=== PATIENT | female | born 1950 | race Caucasian/White ===

== ENCOUNTER 2022-03-06 14:55 | Inpatient (IN) | payer MEDICARE, OTHER, SELFPAY ==
[2022-03-06] VITALS (11 sets, daily range): BP systolic 107–142; BP diastolic 73–98; PULSE 83–107; RESP 16–22; TEMP 36.5–37.1; O2SAT 94–97
--- NOTE | 2022-03-06 14:57 | XR_ITS ---
WS: [id number] Exam: XR hip RT 2-3V wo/w pel* [id number] Date/Time of Exam: 03/06/2022 2:57 PM Reason For Exam: hip pain fall Comminuted intertrochanteric fracture of the right hip with coxa vera deformity. No dislocation. Mild degenerative change of the joint compartment. Normal soft tissues. Metallic screws bridge the right SI joint. XR/XR hip RT 2-3V wo/w pel* [id number] IMPRESSION: 1. Comminuted intertrochanteric fracture with coxa vera deformity.
--- NOTE | 2022-03-06 15:07 | W.ED.GENADLT ---
HPI - General Adult General: Chief complaint: Fall Stated complaint: Fall, R hip pain Time Seen by Provider: 03/06/22 14:57 History of Present Illness: Patient is a 71-year-old female with a history of asthma presenting to the emergency room after an episode of fall 30 minutes ago while patient was eating a [employer]. Patient reports slipped and fell onto her right side and since then has been having significant right-sided hip pain. Patient denies any head injury, or other bodily injuries or trauma. Patient denies any anticoagulation use. Patient denies any associate chest pain, shortness with palpitation prior to the episode of fall. She has been unable to bear weight on the affected extremity after the fall. Onset:30 minutes ago Duration:30 minutes Location:home Severity:moderate/severe Associated symptoms: Deny chest pain, dyspnea, nausea, rash, palpitations or vomiting Review of Systems Const: Denies: fever(s) or chills Eyes: Denies: change in vision ENMT: Denies: mouth pain Card: Denies: chest pain or palpitations Resp: Denies: dyspnea or non-productive cough GI: Denies: abdominal pain, nausea, vomiting or diarrhea : Denies: dysuria Musc: Reports: extremity pain (+R sided hip pain) Skin/Breast: Denies: rash or new lesions Neuro: Denies: weakness in extremities Psych: Reports: other (Normal mood) Chuck/Lymph: Denies: easy bruising PFS ED PFSH: Medical History Asthma Social History Smoking and tobacco status: never smoked Alcohol intake: never Substance/Drug Use: never Physical Exam Const: COMMON NORMALS: alert HENMT: COMMON NORMALS: atraumatic HEAD & SCALP: atraumatic MOUTH: moist mucous membranes not abnormal Eye: COMMON NORMALS: EOMs intact bilaterally and conjunctivae normal CONJUNCTIVA: Yes conjunctivae normal Neck/C-Spine: COMMON NORMALS: full ROM and supple Resp: COMMON NORMALS: normal respiratory effort OTHER: +Expiratory wheezes b/l Cardio: COMMON NORMALS: regular rate RATE: regular rate GI: COMMON NORMALS: Soft to palpation and non-tender PALPATION: Yes Soft to palpation Extremity: OTHER: + Decreased range of motion of right hip due to pain, right lower extremity is externally rotated and shortened, neurovascular exam intact in the affected extremity, cap refill < 3 seconds in the R toes Neuro: SENSORIUM/ORIENTATION: Yes alert MOTOR EXAM: No Abnormal motor strength present and Other motor observations present (no focal motor deficits) Psych: COMMON NORMALS: speech normal SPEECH: Yes normal speech MOOD & AFFECT: Yes euthymic mood Course Vital Signs: Vital signs: Vital Signs Temperature 98.7 F 03/06/22 15:05 Pulse Rate 88 03/06/22 15:09 Respiratory Rate 16 03/06/22 15:09 Blood Pressure 118/73 03/06/22 15:09 Pulse Oximetry 95 03/06/22 15:09 MDM - General Adult Medical Decision Making 71-year-old female with history of asthma presents emergency room with complaints of fall and right-sided hip pain x30 minutes. Patient is right hip is shortened and externally rotated. Neurovascular exam intact in the affected extremity. Patient has significant pain with range of motion of right hip. X-ray showed right-sided intertrochanteric fx. Case was discussed with Dr. Xie who agrees with medical management for now followed by surgery. Patient's pain appears to be well controlled. We will keep n.p.o. for present time. Disposition: admission Lab Data Radiology Impressions Hip/Pelvis X-Ray 03/06/22 14:57 IMPRESSION: 1. Comminuted intertrochanteric fracture with coxa vera deformity. Imaging Data Other Imaging: Radiologist's impression: [address] [address] XRay Report Signed Patient: Elsie Jacobo [place] Unit #: [id number] : 1950 Age/Sex: 71 / F ADM Date: 03/06/22 Loc: ER Room/Bed: Attending Dr: Ordering Provider/Ordering MD: Jesse Vogt MD Date of Service: 03/06/22 Procedure(s): XR hip RT 2-3V wo/w pel* [id number] Accession Number(s): [id number] Report Number: [id number] WS: [id number] Exam: XR hip RT 2-3V wo/w pel* [id number] Date/Time of Exam: 03/06/2022 2:57 PM Reason For Exam: hip pain fall Comminuted intertrochanteric fracture of the right hip with coxa vera deformity. No dislocation. Mild degenerative change of the joint compartment. Normal soft tissues. Metallic screws bridge the right SI joint. XR/XR hip RT 2-3V wo/w pel* [id number] IMPRESSION: 1. Comminuted intertrochanteric fracture with coxa vera deformity. ? Dictated By: Berhane Guy DO Signed By: Berhane Guy DO Signed Date/Time: 03/06/221512 DD/ 11 Discharge Plan Discharge Patient Disposition: Left Against Medical Advice Clinical Impression: Acute hip pain, Closed intertrochanteric fracture Condition: Stable Referrals: Wade Bell MD [Referring] - Patient Instructions: Opioid Safety Coding Level of Care Code ED Chief Engineering Division for Chg Fwd Exam Comprehensive
[2022-03-06] MEDS: morphine 4 mg/mL SDV 1 mL IVP (15:19)
--- NOTE | 2022-03-06 15:21 | XR_ITS ---
WS: [email or web address] Exam: XR chest 1V portable [id number] Date/Time of Exam: 03/06/2022 3:38 PM Reason For Exam: dyspnea No priors. Small infiltrate seen in the lateral mid right lung. Remaining lung giles are clear. No pleural effu sions or pneumothorax. Unremarkable cardiomediastinal silhouette for technique. A permanent cardiac p acer superimposes the left chest. ICD leads along the left heart border. Bony structures are intact.: 1. Small wedge-shaped infiltrate in the lateral mid right lung. This may represent chronic change or focal pneumonia. 2. No other significant finding.
[2022-03-06 15:44] LABS: Basophils % 0.6 %; Eosinophils # 0.9 10^3/uL (0.0-0.8); Eosinophils % 11.9 %; Hematocrit 40.4 % (37.0-47.0); Hemoglobin 12.7 g/dL (11.5-15.3); Lymphocytes # 2.5 10^3/uL (0.8-4.8); Lymphocytes % 34.6 %; Mean Corpuscular HGB Conc 31.4 g/dL (30.0-36.0); Mean Corpuscular Volume 92.2 fl (81-99); Mean Platelet Volume 9.9 fL (7.4-10.4); Monocytes # 0.7 10^3/uL (0.2-0.9); Monocytes % 9.3 %; Neutrophils # 3.09 10^3/uL (1.8-7.7); Nucleated Red Blood Cells % 0 %; Platelet Count 240 10^3/cmm (130-400); Red Blood Count 4.38 10^6/uL (4.1-5.3); Red Cell Distribution Width 12.9 % (12.1-15.1); White Blood Count 7.2 10^3/uL (4.0-10.0)
--- NOTE | 2022-03-06 15:44 | ECG_ITS ---
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 Measurements Intervals [place] Rate: 87 P: 58 [place]: 167 QRS: -48 QRSD: 172 T: 98 QT: 417 QTc: 503 Interpretive Statements A sense V paced rhythm with isolated PVC No previous ECG available for comparison Electronically Signed On 03-06-2022 21:20:07 CDT by Radha Matson M.D. [id number]
--- NOTE | 2022-03-06 15:49 | PC.PHAR ---
pt and pts verified pts medications-pt states she is still taking pantoprazole 40mg daily ext med history shows last filled 10/30/21 12d/s for 40mg bid-pt states she is still taking montelukast 10mg daily ext med history shows last filled 09/26/21 90d/s pt states had a build up of those medications-notes are made in the pharmacy comments
[2022-03-06 15:58] LABS: Partial Thromboplastin Time 26.6 SECONDS (23.9-36.7)
[2022-03-06 16:00] LABS: Anion Gap 12.5 (5-19); Blood Urea Nitrogen 14 mg/dL (8-23); Calcium 9.5 mg/dL (8.5-10.5); Carbon Dioxide 29 mmol/L (22-29); Chloride 100 mmol/L (98-107); Glucose 133 mg/dL (65-115); Osmolality Calculated 286 mOsm/kg (285-295); Potassium 4.5 mmol/L (3.5-5.1); Sodium 137 mmol/L (136-145)
[2022-03-06 16:37] LABS: Troponin(5th) Baseline 13 ng/L (0-10)
[2022-03-06 16:48] LABS: NT Pro B Type Natriuretic Pept 114 pg/mL (0-125); Procalcitonin 0.04 ng/mL (0-0.5)
[2022-03-06] MEDS: ipratropium-albuterol 3 mL Neb INHALATION ×2 (17:23→21:26)
--- NOTE | 2022-03-06 17:44 | ECG_ITS ---
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 Measurements Intervals [place] Rate: 93 P: 63 [place]: 170 QRS: -42 QRSD: 171 T: 114 QT: 393 QTc: 490 Interpretive Statements ELECTRONIC VENTRICULAR PACEMAKER ABNORMAL RHYTHM ECG Compared to ECG 03/06/2022 15:49:34 No significant changes Electronically Signed On 03-06-2022 21:28:33 CDT by Radha Matson M.D. [email or web address] medical [email or web address] medical [email or web address] Investments/store/[id number]
--- NOTE | 2022-03-06 17:48 | PM.HP ---
Providers/Chief Complaint Chief Complaint: Fall, R hip pain History of Present Illness Elsie Jacobo is a 71 year old female with a past medical history of asthma, history of ICD and defibrillator placement for CHF, CHF, type unknown, who presents to [facility] for a fall. Patient tells me that she was out [employer], she was using the bathroom, when she walked out and she fell to the floor. Denies any preceding chest pain, no palpitations, lightheadedness, dizziness, no strokelike symptoms no seizure-like symptoms, she just fell to the floor, denies her knees giving out, denies twisting, denies tripping. She was diagnosed with a hip fracture hospitalist team was consulted as she is having active wheezing. She tells me that she is diagnosed with asthma initially they thought she has COPD but they did some lung test she tells me and she was diagnosed with asthma. She is currently not smoking but has a history of smoking in the past. She tells me that she has been using [id number] nebulizers at home, has not used any steroids she is supposed to see a lung doctor in the next 2 weeks. Does report a 2-week history of increased shortness of breath, does not use oxygen at home, no history of pulmonary emboli, no history of DVT, is not on any blood thinners except aspirin. No sick contacts, no recent travel, no fevers, no history of COVID-19 Review of Systems Const: Denies: fever(s) Eyes: Denies: change in vision or blurry vision ENMT: Denies: nasal congestion GI: Denies: abdominal pain or nausea : Denies: dysuria Skin/Breast: Denies: rash Neuro: Denies: dizziness Endo: Denies: polyuria or polydipsia Medications/Allergies Home Medications Medication Instructions Recorded Confirmed Last Taken Type albuterol sulfate 90 mcg/actuation 1 puff INHALATION Q4H PRN 03/06/22 03/06/22 Unknown History aerosol inhaler aspirin 81 mg tablet,delayed 81 mg PO QAM 03/06/22 03/06/22 Unknown History release etanercept 50 mg/mL (1 mL) 50 mg SUBCUT Q7D 03/06/22 03/06/22 03/04/22 History subcutaneous syringe (Enbrel) ipratropium 0.5 mg-albuterol 3 mg 3 ml INHALATION Q6H PRN 03/06/22 03/06/22 Unknown History (2.5 mg base)/3 mL nebulization soln ketotifen fumarate 0.025 % (0.035 1 drp OPHTHALMIC (EYE) Q8H PRN 03/06/22 03/06/22 Unknown History %) eye drops (Allergy Eye (ketotifen)) levetiracetam 500 mg tablet 500 mg PO BID 03/06/22 03/06/22 03/06/22 History montelukast 10 mg tablet 10 mg PO DAILY 03/06/22 03/06/22 Unknown History multivitamin 1 tab PO DAILY 03/06/22 03/06/22 Unknown History pantoprazole 40 mg tablet,delayed 40 mg PO DAILY 03/06/22 03/06/22 Unknown History release ropinirole 0.25 mg tablet 0.25 - 0.5 mg PO BEDTIME 03/06/22 03/06/22 03/05/22 History spironolactone 25 mg tablet 25 mg PO QAM 03/06/22 03/06/22 03/06/22 History Allergies Allergy/AdvReac Type Severity Reaction Status Date / Time iodine Allergy ALGY-Rash Verified 03/06/22 15:33 Penicillins Allergy Unknown Verified 03/06/22 15:09 PFSH Acute PFSH: Medical History (Updated 03/06/22 @ 18:10 by Arya Lagunas MD) Asthma History of asthma Surgical History (Updated 03/06/22 @ 18:08 by Arya Lagunas MD) History of implantable cardioverter-defibrillator (ICD) placement Family History (Updated 03/06/22 @ 18:09 by Arya Lagunas MD) Father CAD (coronary artery disease) Social History Smoking and tobacco status: never smoked Alcohol intake: never Substance/Drug Use: never Vitals/I&O/Wt Last Vital Signs Temp 98.7 F 03/06/22 15:05 Pulse 83 03/06/22 17:25 Resp 18 03/06/22 17:25 BP 109/86 03/06/22 17:13 Pulse Ox 95 03/06/22 17:25 Weight last 48 hrs Weight 63.503 kg Physical Exam Const: COMMON NORMALS: no acute distress and patient oriented x3 HENMT: COMMON NORMALS: normocephalic HEAD & SCALP: normocephalic Neck/C-Spine: COMMON NORMALS: no JVD Resp: COMMON NORMALS: normal respiratory effort, No retractions and No use of accessory muscles AUSCULTATION: wheezes Cardio: COMMON NORMALS: no JVD, regular rate, regular rhythm, S1 normal heart sound present and S2 normal heart sound present RATE: regular rate RHYTHM: regular rhythm HEART SOUNDS: S1 normal heart sound present and S2 normal heart sound present GI: COMMON NORMALS: Normal to inspection, nondistended, normoactive bowel sounds present, Soft to palpation, non-tender, No hepatosplenomegaly present, no masses and no bruits PALPATION: Yes Soft to palpation and Yes No hepatosplenomegaly present Extremity: COMMON NORMALS: no calf tenderness and no pedal edema Neuro: COMMON NORMALS: patient oriented x3 Psych: COMMON NORMALS: mental status grossly normal Data : 03/06/22 15:29 03/06/22 15:29 A&P Assessment and plan (1) Closed intertrochanteric fracture: Status: Acute (2) Acute hip pain: Status: Acute (3) Asthma exacerbation: Status: Acute Plan Right hip fracture -Pain control Dilaudid -DVT prophylaxis Lovenox -N.p.o. midnight -Possible surgical intervention tomorrow full code acute asthma exacerbation -Solu-Medrol 60 every 6 -DuoNeb every 4 hours -monitor respiratory status closely -Doxycycline History of ICD placement, for CHF History of CHF, not in exacerbation, and L BNP is not elevated History of fall -Patient's tells me that she always falls -He is not exactly sure why -The etiology of this fall is unclear -Troponins, serial EKGs, echo, carotid artery ultrasound, CT of the head - Attestations Medical Necessity Statement*: Patient requires patient requires hospitalization for hip fracture, acute asthma exacerbation, inpatient, greater than 2 minutes Coding Level of Care Code Acute Hvac Engineer for g Fwd Diagnoses Closed intertrochanteric fracture S72.143A Acute hip pain M25.559 Asthma exacerbation J45.901
[2022-03-06 18:36] LABS: Troponin 5 2HR 12.05 ng/L (0-10)
[2022-03-06 18:45] LABS: Troponin 5 2HR Delta -0.95 ABS# (0-10)
--- NOTE | 2022-03-06 18:57 | PM.CONSULT ---
Providers/Reason For Consult Consulting Physician/Specialty*: Lorna Perez MD Reason for Consult*: Right intertrochanteric hip fracture Requesting Physician: Jesse Vogt MD Attending Physician: Arya Lagunas MD History of Present Illness History of Present Illness Elsie Jacobo is a 71 year old female who fell most recently while in [facility]. She does describe a fall a couple of weeks ago at a [employer]'s as well. The most recent fall occurred after using the bathroom. She notes that she walked out of the bathroom and fell to the floor. She denied any kind of syncope or other reason for the fall. She cannot tell me why she fell, however. Upon admission, the patient had significant wheezing and she has been diagnosed with asthma. She has a prior history of tobacco use, but is currently not a user. She uses njosoz-wph-raffy nebulizers at home, but she has not used any steroid treatment. She does have a appointment with a seafood harvester in the next couple of weeks. Review of Systems Const: Denies: fever(s) or chills Eyes: Denies: change in vision or blurry vision ENMT: Denies: mouth pain or nasal congestion Card: Denies: chest pain or palpitations Resp: Denies: dyspnea or non-productive cough GI: Denies: abdominal pain, nausea, vomiting or diarrhea : Denies: dysuria Musc: Reports: extremity pain (+R sided hip pain) Skin/Breast: Denies: rash or new lesions Neuro: Denies: weakness in extremities or dizziness Psych: Reports: other (Normal mood) Endo: Denies: polyuria or polydipsia Chuck/Lymph: Denies: easy bruising Medications/Allergies Home Medications Medication Instructions Recorded Confirmed Last Taken Type albuterol sulfate 90 mcg/actuation 1 puff INHALATION Q4H PRN 03/06/22 03/06/22 Unknown History aerosol inhaler aspirin 81 mg tablet,delayed 81 mg PO QAM 03/06/22 03/06/22 Unknown History release etanercept 50 mg/mL (1 mL) 50 mg SUBCUT Q7D 03/06/22 03/06/22 03/04/22 History subcutaneous syringe (Enbrel) ipratropium 0.5 mg-albuterol 3 mg 3 ml INHALATION Q6H PRN 03/06/22 03/06/22 Unknown History (2.5 mg base)/3 mL nebulization soln ketotifen fumarate 0.025 % (0.035 1 drp OPHTHALMIC (EYE) Q8H PRN 03/06/22 03/06/22 Unknown History %) eye drops (Allergy Eye (ketotifen)) levetiracetam 500 mg tablet 500 mg PO BID 03/06/22 03/06/22 03/06/22 History montelukast 10 mg tablet 10 mg PO DAILY 03/06/22 03/06/22 Unknown History multivitamin 1 tab PO DAILY 03/06/22 03/06/22 Unknown History pantoprazole 40 mg tablet,delayed 40 mg PO DAILY 03/06/22 03/06/22 Unknown History release ropinirole 0.25 mg tablet 0.25 - 0.5 mg PO BEDTIME 03/06/22 03/06/22 03/05/22 History spironolactone 25 mg tablet 25 mg PO QAM 03/06/22 03/06/22 03/06/22 History Allergies Allergy/AdvReac Type Severity Reaction Status Date / Time iodine Allergy ALGY-Rash Verified 03/06/22 15:33 Penicillins Allergy Unknown Verified 03/06/22 15:09 PFSH Acute PFSH: Medical History Asthma History of asthma Surgical History History of implantable cardioverter-defibrillator (ICD) placement Family History Father CAD (coronary artery disease) Social History (Updated 03/07/22 @ 12:51 by Lorna Perez MD) Smoking and tobacco status: former smoker Alcohol intake: never Substance/Drug Use: never Vitals/I&O/Wt Last Vital Signs Temp 98.7 F 03/06/22 15:05 Pulse 99 03/06/22 18:18 Resp 16 03/06/22 18:18 BP 119/74 03/06/22 18:18 Pulse Ox 96 03/06/22 18:18 Weight last 48 hrs Weight 140 lb Physical Exam Const: COMMON NORMALS: no acute distress, average body habitus, patient oriented x3 and alert GENERAL APPEARANCE: cooperative and comfortable ORIENTATION/CONSCIOUSNESS: Yes awake HENMT: COMMON NORMALS: normocephalic and atraumatic HEAD & SCALP: normocephalic and atraumatic Eye: GENERAL EYE: appearance normal, both eyes and all related structures Resp: COMMON NORMALS: normal respiratory effort EFFORT & INSPECTION: Yes able to speak in complete sentences and Yes symmetric chest movement Extremity: RIGHT LOWER EXTREMITY: Yes hip joint Right hip: Yes ROM (Not evaluated.) and Yes neurovascular exam (Intact distally.) Neuro: COMMON NORMALS: patient oriented x3 SENSORIUM/ORIENTATION: Yes alert Psych: COMMON NORMALS: mental status grossly normal APPEARANCE: Yes grossly normal ATTITUDE: Yes calm and Yes engaged ATTENTION/CONCENTRATION: Yes attention grossly intact Skin: COMMON NORMALS: no rashes or lesions noted GENERAL SKIN EXAM: no rashes or lesions noted Data : 03/07/22 01:43 03/07/22 01:43 Xray Ortho: I personally reviewed and interpreted this imaging study as follows: My impression: X-rays were obtained in the emergency department. The imaging studies included 2 views of the patient's right hip. There is an intertrochanteric hip fracture involving the lesser trochanter and with significant shortening and coxa vera deformity. The fracture does not appear to extend beyond the distal aspect of the lesser trochanter. A&P Assessment and plan (1) Closed intertrochanteric fracture: Patient presented to the emergency room with a displaced shortened right intertrochanteric hip fracture. I was consulted by the emergency department for definitive care. Tentatively, the patient is on the schedule for March 07 at approximately 10 AM. I did receive a call from the hospitalist team that the patient is quite wheezy, and and she appears to have an acute asthmatic exacerbation. Secondary to the nature of her fracture, my preference would be to proceed tomorrow with open reduction internal fixation utilizing a trochanteric nail, however, the patient will need to be reevaluated in the morning by the medical team to determine appropriateness of this. The patient has now been found to have influenza, but it is felt that it is appropriate to proceed with the surgical intervention given the morbidities associated with not fixing this fracture in a timely fashion. The patient understands the risks. Additionally, the patient has SI joint screws which are problematic for her. Her has asked if we could take those out. I have advised the patient that we will not be in the area of the screws. Status: Acute Qualifiers: Encounter type: initial encounter Fracture alignment: displaced Laterality: right Qualified Code(s): S72.141A - Displaced intertrochanteric fracture of right femur, initial encounter for closed fracture Consult Attestations Medical Necessity Statement: Patient is hospitalized for treatment following closed intertrochanteric hip fracture. Coding Level of Care Code Acute Transportation Sales Consultant for [facility] Diagnoses Closed intertrochanteric fracture S72.141A Encounter type: initial encounter Fracture alignment: displaced Laterality: right
--- NOTE | 2022-03-06 19:33 | PC.NURSE ---
attempted to call report nurse to call back
[2022-03-06] MEDS: HYDROmorphone 1 mg/mL INJ 1 mL 0.5 MG IVP ×2 (20:11→23:48)
--- NOTE | 2022-03-06 21:44 | ECG_ITS ---
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 Measurements Intervals [place] Rate: 102 P: 56 [place]: 164 QRS: -34 QRSD: 166 T: 124 QT: 380 QTc: 495 Interpretive Statements A sense V paced rhythm ELECTRONIC VENTRICULAR PACEMAKER ABNORMAL RHYTHM ECG Compared to ECG 03/06/2022 17:36:04 No significant changes Electronically Signed On 03-06-2022 21:27:27 CDT by Radha Matson M.D. [id number]
[2022-03-06 22:22] LABS: Troponin 5 6HR 11.86 ng/L (0-10); Troponin 5 6HR Delta -1.14 ng/L (0-12)
[2022-03-06] MEDS: enoxaparin 40 mg/0.4 mL Syringe SUBCUT (23:29)
[2022-03-06] MEDS: levETIRAcetam 500 mg Tablet PO (23:29)
[2022-03-07] VITALS (26 sets, daily range): BP systolic 72–131; BP diastolic 47–87; PULSE 63–118; RESP 10–20; TEMP 36.2–37.2; O2SAT 90–100
--- NOTE | 2022-03-07 | XR_ITS ---
WS: [email or web address] Exam: XR hip RT 2-3V wo/w pel* [id number] Date/Time of Exam: 03/07/2022 12:00 AM Reason For Exam: fall, right hip pain AP and lateral C-arm images are submitted for evaluation. Compared to last exam 03/06/2022. There is internal orthopedic fixation involving an intertrochanteric fracture of the right hip with a n intramedullary germaine and femoral neck screw. Alignment is satisfactory for healing. Postoperative rebecca nges in the adjacent soft tissues. XR/XR hip RT 2-3V wo/w pel* [id number] IMPRESSION: 1. Satisfactory ORIF involving an intertrochanteric fracture of the right hip.
--- NOTE | 2022-03-07 | SCC_ITS ---
Procedure done: Open reduction internal fixation right intertrochanteric hip fracture 61.4 seconds of fluoroscopic guidance, for a cumulative dose of 18.79 mGy, was provided to Dr. Perez by the radiology department. C-arm images of the RIGHT hip were saved for the patient's permanent record. [facility]ERS[facility]
[2022-03-07 01:10] LABS: Adenovirus Not Detected (NOT DETECT); Chlamydia Pneumoniae Not Detected (NOT DETECT); Coronavirus 229E,HKU1,NL63,OC4 Not Detected (NOT DETECT); Human Metapneumovirus Not Detected (NOT DETECT); Human Rhinovirus/Enterovirus Not Detected (NOT DETECT); Influenza A Not Detected (NOT DETECT); Influenza A H1 Not Detected (NOT DETECT); Influenza A H1-2009 Not Detected (NOT DETECT); Influenza A H3 Not Detected (NOT DETECT); Influenza B Not Detected (NOT DETECT); Mycoplasma Pneumoniae Not Detected (NOT DETECT); Parainfluenza Virus Type 1 Not Detected (NOT DETECT); Parainfluenza Virus Type 2 Not Detected (NOT DETECT); Parainfluenza Virus Type 3 Not Detected (NOT DETECT); Parainfluenza Virus Type 4 Not Detected (NOT DETECT); Respiratory Syncytial Virus A Not Detected (NOT DETECT); Respiratory Syncytial Virus B Not Detected (NOT DETECT); SARS-COV-2 Not Detected (NOT DETECT)
[2022-03-07 01:17] LABS: Influenza A by IFA Positive (Negative); Influenza B by IFA Positive (Negative)
[2022-03-07 02:20] LABS: Basophils % 0.2 %; Eosinophils % 0.2 %; Hemoglobin 12.1 g/dL (11.5-15.3); Lymphocytes # 0.9 10^3/uL (0.8-4.8); Lymphocytes % 8.8 %; Mean Corpuscular HGB Conc 32.7 g/dL (30.0-36.0); Mean Corpuscular Hemoglobin 29.1 pg (28.0-34.0); Mean Corpuscular Volume 88.9 fl (81-99); Monocytes # 0.2 10^3/uL (0.2-0.9); Monocytes % 2.1 %; Neutrophils # 8.85 10^3/uL (1.8-7.7); Neutrophils % 88.1 %; Nucleated Red Blood Cells % 0 %; Platelet Count 203 10^3/cmm (130-400); Red Blood Count 4.16 10^6/uL (4.1-5.3); Red Cell Distribution Width 12.6 % (12.1-15.1)
[2022-03-07 02:40] LABS: Lactic Sepsis W/Reflex 0.9 mmol/L (0.5-2.2)
[2022-03-07 02:43] LABS: Estmated Average Glucose 120; Hemoglobin A1C 5.8 % (4.0-6.0)
[2022-03-07 02:50] LABS: Add Urine Microscopic? NO; Charge for UA Resulting for Rev
[2022-03-07 02:53] LABS: NT Pro B Type Natriuretic Pept 447 pg/mL (0-125); Procalcitonin 0.05 ng/mL (0-0.5)
[2022-03-07 02:54] LABS: Alanine Aminotransferase 16 U/L (0-33); Albumin Level 4.2 g/dL (3.5-5.2); Alkaline Phosphatase 79 IU/L (35-105); Aspartate Amino Transferase 19 U/L (0-32); Blood Urea Nitrogen 17 mg/dL (8-23); Calcium 9.5 mg/dL (8.5-10.5); Carbon Dioxide 26 mmol/L (22-29); Chloride 102 mmol/L (98-107); Glucose 159 mg/dL (65-115); Magnesium 2.1 mg/dL (1.7-2.3); Osmolality Calculated 291 mOsm/kg (285-295); Phosphorus 3.2 mg/dL (2.5-4.5); Sodium 138 mmol/L (136-145); Total Bilirubin 0.4 mg/dL (0.15-1.2); Total Protein 7.2 g/dL (6.6-8.7)
[2022-03-07 03:01] LABS: Bilirubin Urine Neg (Negative); Blood Urine Neg (Negative); Glucose Urine UA Norm (Normal); Ketones Urine Negative (Negative); Leukocyte Esterase Urine Negative (Negative); Nitrate Urine Negative (Negative); Protein Urine Neg (Negative); Specific Gravity, Urine 1.015 (1.005-1.030); Urine Appearance Clear (CLEAR); Urine Color Yellow (Yellow); Urobilinogen Urine Norm (Negative); pH Urine 6 (5-7)
[2022-03-07 03:04] LABS: Cholesterol 206 mg/dL (0-200); HDL Cholesterol 42 mg/dL (60-100); LDL Cholesterol Calculated 141 mg/dL (50-129); LDL HDL Ratio 3.36 RATIO (0.00-3.22); Triglycerides 117 mg/dL (0-150)
[2022-03-07] MEDS: spironolactone 25 mg Tablet PO (05:09)
[2022-03-07] MEDS: aspirin 81 mg EC Tablet PO (05:09)
--- NOTE | 2022-03-07 05:50 | PC.NURSE ---
Chlorexidine wipes to patient's full body at this time. Clean gown provided.
[2022-03-07] MEDS: HYDROmorphone 1 mg/mL INJ 1 mL 0.5 MG IVP (07:37)
[2022-03-07] MEDS: ipratropium-albuterol 3 mL Neb INHALATION (08:59)
--- NOTE | 2022-03-07 10:43 | P.PN_ITS ---
Subjective Subjective: She reports she is feeling slightly better in terms of her breathing. Otherwise she is not feeling better, with pain in her right hip. She is also bothered by the fact that she has to stay in bed. Discussed with her findings of persistent mild wheeze currently. Discussed pneumonia with influenza positive, she tells me that symptoms have been building up over the last 3-4 days. Discussed some increase in risk from the pneumonia, respiratory infection, potential difficulties with oxygenation, extubation, however, she is also on room air, and reports today is feeling better in terms of her breathing. We discussed consideration of waiting longer, however, this may also be detrimental with continued blood loss, as well as possibility of overall deterioration in condition, loss of stamina, more difficult recovery. She considers that she would like to proceed with hip repair. Vitals/I&O/Wt Last Vital Signs Temp 97.8 F 03/07/22 07:25 Pulse 90 03/07/22 09:08 Resp 18 03/07/22 09:08 BP 119/80 03/07/22 07:25 Pulse Ox 95 03/07/22 09:08 03/06/22 03/07/22 03/07/22 22:59 06:59 14:59 Intake Total 100 / 100 Output Total 250 / 250 Balance -150 / -150 Weight last 48 hrs Weight 69.536 kg Weight 63.503 kg Physical Exam 2 Const: COMMON NORMALS: alert GENERAL APPEARANCE: cooperative ORIENTATION/CONSCIOUSNESS: Yes awake HENMT: COMMON NORMALS: normocephalic, EAC's normal, Normal external nose present and moist oral mucous membranes HEAD & SCALP: normocephalic NOSE: Normal external nose present EXTERNAL AUDITORY CANAL: EAC's normal Neck/C-Spine: COMMON NORMALS: no meningeal signs Chest: CHEST: Yes Symmetrical chest wall rise Resp: COMMON NORMALS: clear to auscultation bilaterally AUSCULTATION: clear to auscultation bilaterally and wheezes (minimal L lower) Cardio: COMMON NORMALS: regular rate, regular rhythm and No murmurs present (Cardio) RATE: regular rate RHYTHM: regular rhythm GI: COMMON NORMALS: Normal to inspection, nondistended, normoactive bowel sounds present, Soft to palpation and non-tender PALPATION: Yes Soft to palpation Extremity: COMMON NORMALS: no pedal edema OTHER: Pain on any repositioning in R hip Neuro: COMMON NORMALS: moves all extremities SENSORIUM/ORIENTATION: Yes alert MENINGEAL SIGNS: Yes no meningeal signs Psych: COMMON NORMALS: mental status grossly normal Skin: COMMON NORMALS: no wounds RASHES: no rashes Urinary Catheter Management: Varghese: Cath Placed During This Visit: yes Reason for Continuing Indwelling Catheter: Other Urinary Catheter Date of Insertion: 03/07/22 Urinary Catheter Time of Insertion: 02:41 Data : 03/07/22 01:43 03/07/22 01:43 A&P Assessment and plan (1) Acute hip pain: Pending repair. Status: Acute (2) Closed intertrochanteric fracture: Status: Acute Qualifiers: Encounter type: initial encounter Fracture alignment: displaced Laterality: right Qualified Code(s): S72.141A - Displaced intertrochanteric fracture of right femur, initial encounter for closed fracture (3) Asthma exacerbation: Feeling better in terms of breathing. She has mild residual wheezing, but overall better. Influenza a and B. Continue breathing treatments. Continue empiric doxycycline for now. Continue steroid. Incentive spirometer. Status: Acute (4) Influenza: Influenza A and B, viral pneumonia. Tamiflu. Symptoms started 3-4 days ago, however, with asthma and risk of complication. Isolation. Status: Acute Plan History of ICD placement, for CHF History of CHF: Avoid fluid overload History of fall: recurrent falls - Attestations Medical Necessity Statement*: Continue admission for management of right hip fracture, influenza infection, asthma exacerbation. Coding Level of Care Code Acute Lighting Specialist for [facility] Diagnoses Closed intertrochanteric fracture S72.141A Encounter type: initial encounter Fracture alignment: displaced Laterality: right Acute hip pain M25.559 Asthma exacerbation J45.901 Influenza J11.1
[2022-03-07] MEDS: acetaminophen 1,000 MG/100 ML PIGGYBACK 400 MG IV (12:55)
[2022-03-07] MEDS: CELEcoxib 200 mg Capsule 400 MG PO (12:55)
[2022-03-07] MEDS: sodium chloride 0.9% 1,000 ML 30 ML IV (12:56)
[2022-03-07] MEDS: vancomycin 1,000 MG in sodium chloride 0.9% 250 ML 250 MG IV (13:08)
--- NOTE | 2022-03-07 14:00 | ANES.PREANE2 ---
Pre-Anesthetic Assessment Height/Weight: Weight 69.536 kg Temp Pulse Resp BP Pulse Ox 98.4 F 99 18 126/78 96 03/07/22 11:59 03/07/22 11:59 03/07/22 11:59 03/07/22 11:59 03/07/22 11:59 Preop Diagnosis: Right intertrochanteric hip fracture Operation Date: 03/07/22 12:30 Proposed Procedures p Trochanteric Femoral Nail(Right) - Lorna Perez MD Familial anesthetic complications: None Was Beta Ngoc taken within 24 hours: N/A Was Clonidine taken within 24 hours: N/A Last intake: Intake Last Liquid Date 03/06/22 Last Liquid Time 23:30 Last Solid Date 03/06/22 Last Solid Time 23:30 Social No alcohol and No tobacco Exam alert, oriented x 3 and regular rate & rhythm wheezing Airway Submandibular: within normal limits Cervical ROM: within normal limits Mallampati: Class II Dentition: full Pulmonary Asthma influenza GI Gastroesophageal Reflux Disease Anesthetic Plan ASA status: 3 Anesthesia: Regional (specify below) (SAB) Medications/Allergies Home Medications Medication Instructions Recorded Confirmed Last Taken Type albuterol sulfate 90 mcg/actuation 1 puff INHALATION Q4H PRN 03/06/22 03/06/22 Unknown History aerosol inhaler aspirin 81 mg tablet,delayed 81 mg PO QAM 03/06/22 03/06/22 Unknown History release etanercept 50 mg/mL (1 mL) 50 mg SUBCUT Q7D 03/06/22 03/06/22 03/04/22 History subcutaneous syringe (Enbrel) ipratropium 0.5 mg-albuterol 3 mg 3 ml INHALATION Q6H PRN 03/06/22 03/06/22 Unknown History (2.5 mg base)/3 mL nebulization soln ketotifen fumarate 0.025 % (0.035 1 drp OPHTHALMIC (EYE) Q8H PRN 03/06/22 03/06/22 Unknown History %) eye drops (Allergy Eye (ketotifen)) levetiracetam 500 mg tablet 500 mg PO BID 03/06/22 03/06/22 03/06/22 History montelukast 10 mg tablet 10 mg PO DAILY 03/06/22 03/06/22 Unknown History multivitamin 1 tab PO DAILY 03/06/22 03/06/22 Unknown History pantoprazole 40 mg tablet,delayed 40 mg PO DAILY 03/06/22 03/06/22 Unknown History release ropinirole 0.25 mg tablet 0.25 - 0.5 mg PO BEDTIME 03/06/22 03/06/22 03/05/22 History spironolactone 25 mg tablet 25 mg PO QAM 03/06/22 03/06/22 03/06/22 History Allergies Allergy/AdvReac Type Severity Reaction Status Date / Time codeine Allergy ALGY-Rash Verified 03/07/22 13:06 iodine Allergy ALGY-Rash Verified 03/06/22 15:33 Penicillins Allergy Unknown Verified 03/06/22 15:09 Current Medications Generic Name Dose Route Start Last Admin Trade Name Freq PRN Reason Stop Dose Admin Albuterol/Ipratropium 3 ml 03/06/22 20:00 03/07/22 11:47 Ipratropium-Albuterol 3 Ml Neb INHALATION Not Given QID.RESPIRATORY MYRTLE Aspirin 81 mg 03/07/22 06:00 03/07/22 05:09 Aspirin 81 Mg Ec Tablet PO 81 mg QAM MYRTLE Administration Enoxaparin Sodium 40 mg 03/06/22 19:56 03/06/22 23:29 Enoxaparin 40 Mg/0.4 Ml Syringe SUBCUT 40 mg Q24H MYRTLE Administration Hydromorphone HCl 0.5 mg 03/06/22 19:56 03/07/22 07:37 Hydromorphone 1 Mg/Ml Inj 1 Ml IVP 0.5 mg Q4H PRN Administration PAIN Doxycycline Hyclate 100 mg/ 100 mls @ 100 mls/hr 03/06/22 20:15 03/07/22 02:55 Sodium Chloride IV Infused Q12H MYRTLE Infusion Protocol Sodium Chloride 1,000 mls @ 30 mls/hr 03/07/22 12:30 03/07/22 12:56 Sodium Chloride 0.9% IV 03/08/22 12:29 30 mls/hr .Q24H MYRTLE Administration Levetiracetam 500 mg 03/06/22 19:56 03/06/22 23:29 Levetiracetam 500 Mg Tablet PO 500 mg BID MYRTLE Administration Methylprednisolone Sodium Succinate 60 mg 03/06/22 19:56 03/07/22 05:08 Methylprednisolone Sod Succ 125 Mg/2 Ml Inj IVP 60 mg Q6H MYRTLE Administration Spironolactone 25 mg 03/07/22 06:00 03/07/22 05:09 Spironolactone 25 Mg Tablet PO 25 mg QAM MYRTLE Administration PFSH Anesthesia Medical History Asthma History of asthma Surgical History History of implantable cardioverter-defibrillator (ICD) placement Family History Father CAD (coronary artery disease) Social History (Updated 03/07/22 @ 12:51 by Lorna Perez MD) Smoking and tobacco status: former smoker Alcohol intake: never Substance/Drug Use: never Data Anesthesia : 03/07/22 01:43 03/07/22 01:43 Short CBC 03/06/22 03/07/22 Range/Units 15:29 01:43 WBC 7.2 10.0 (4.0-10.0) 10^3/uL Hgb 12.7 12.1 (11.5-15.3) g/dL Hct 40.4 37.0 (37.0-47.0) % MCV 92.2 88.9 (81-99) fl Plt Count 240 203 (130-400) 10^3/cmm Neut % (Auto) 43.0 88.1 % Neut # (Auto) 3.09 8.85 H (1.8-7.7) 10^3/uL BMP 03/06/22 03/07/22 15:29 01:43 Sodium 137 138 Potassium 4.5 5.0 Chloride 100 102 Carbon Dioxide 29 26 BUN 14 17 Creatinine 0.7 0.6 Glucose 133 H 159 H Calcium 9.5 9.5 Cardiac Enzymes 03/06/22 03/06/22 03/06/22 Range/Units 15:29 15:29 17:45 Troponin T Baseline 13 H (0-10) ng/L Troponin T 120 Minute 12.05 H (0-10) ng/L Delta Troponin T -0.95 L (0-10) ABS# Troponin T Hi Sens 6Hr (0-10) ng/L Troponin T Hi Sens 6Hr Delta (0-12) ng/L NT-Pro-B Natriuret Pep 114 (0-125) pg/mL 03/06/22 03/07/22 Range/Units 21:49 01:43 Troponin T Baseline (0-10) ng/L Troponin T 120 Minute (0-10) ng/L Delta Troponin T (0-10) ABS# Troponin T Hi Sens 6Hr 11.86 H (0-10) ng/L Troponin T Hi Sens 6Hr Delta -1.14 L (0-12) ng/L NT-Pro-B Natriuret Pep 447 H (0-125) pg/mL Liver Function 03/07/22 Range/Units 01:43 Total Bilirubin 0.4 (0.15-1.2) mg/dL AST 19 (0-32) U/L ALT 16 (0-33) U/L Alkaline Phosphatase 79 (35-105) IU/L Albumin 4.2 (3.5-5.2) g/dL Urine 03/07/22 Range/Units 02:30 Urine Color Yellow (Yellow) Urine Appearance Clear (CLEAR) Urine pH 6 (5-7) Ur Specific [place] 1.015 (1.005-1.030) Urine Protein Neg (Negative) Urine Glucose (UA) Norm (Normal) Urine Ketones Negative (Negative) Urine Nitrate Negative (Negative) Urine Bilirubin Neg (Negative) Ur Leukocyte Esterase Negative (Negative) COVID Results 03/06/22 23:15 Coronavirus 229E (PCR) Not detected SARS-CoV-2 (PCR) Not detected Coags 03/06/22 03/06/22 15:29 15:29 PT 13.50 INR 1.00 APTT 26.6 C-Reactive Protein 5.0 H Cardiac Studies: No Data to Display
[2022-03-07] MEDS: vancomycin 1,000 MG SDV 1000 MG IRRIGATION (14:01)
--- NOTE | 2022-03-07 14:55 | PM.OP ---
Operative Report Date of procedure: March 07, 2022 Pre-op diagnosis: Right comminuted, angulated intertrochanteric hip fracture Post-op diagnosis: Right comminuted, angulated intertrochanteric hip fracture Procedure done: Open reduction internal fixation right intertrochanteric hip fracture Implants: The [place] gamma 3 trochanteric nail system with a size 11 mm x 180 mm x 125 degree trochanteric nail, a 10.5 mm x 90 mm proximal lag screw, and a 5 mm x 32.5 mm distal locking screw Specimens removed/disposition: None Pathology: none sent Surgeon: Lorna Perez Medical Laboratory Assistant: None Anesthesia: MAC (with Spinal, ASA 2) Estimated blood loss (mL): 75 IV fluids (mL): 500 Urine output (mL): 250 Complications: None Findings: Comminuted, angulated intertrochanteric hip fracture with significant shortening, left Condition: stable Disposition: PACU (Then return to floor for postoperative rehabilitation and pain management) Brief History: Elsie Jacobo is a 71 year old female who fell most recently while in [facility].? She does describe a fall a couple of weeks ago at a [employer] [place] [employer] as well.? The most recent fall occurred after using the bathroom.? She notes that she walked out of the bathroom and fell to the floor.? She denied any kind of syncope or other reason for the fall.? She cannot tell me why she fell, however.? Upon admission, the patient had significant wheezing and she has been diagnosed with asthma.? She has a prior history of tobacco use, but is currently not a user.? She uses [id number] nebulizers at home, but she has not used any steroid treatment.? She does have a appointment with a maple syrup maker in the next couple of weeks. Patient was seen preoperatively. Consents were signed and questions were answered. Procedure: Patient is brought to the operating theater. After undergoing adequate general anesthesia with LMA, ASA 3, the patient was transferred to the fracture table, positioned on the table and fluoroscopic guidance obtained throughout the surgical procedure. Prior to the commencement of the surgical procedure, a surgical pause was performed. At the time of the surgical pause, we confirmed the site and side of surgery as well as preoperative surgical markings and appropriate and timely administration of IV antibiotics, vancomycin 1 g. Availability of equipment was also confirmed. Fluoroscopy was used to confirm the fracture was appropriately reduced in both AP and lateral planes. An incision was then made slightly above the greater trochanter to allow access to the greater trochanter. An awl was used to enter the greater trochanter and a guidewire was subsequently placed. Once the guidewire was confirmed to be in appropriate position in AP and lateral planes, reaming was accomplished over this to allow for the proximal diameter of the nail.? Guidewire was then removed. An attempt was made to place the 11 mm x 180 mm x 125 degree gamma 3 trochanteric nail into appropriate position, but the patient's canal was quite small.? Therefore, reaming was accomplished to a size 12-1/2 to allow the 11 mm nail to pass uneventfully.? The nail was placed into appropriate position with positioning being confirmed in AP and lateral planes on the x-ray. It passed without difficulty following reaming. Guidewire was then passed through the jigging system into the femoral head. We wanted to be center or slightly inferior and posterior to center. Guidewire was placed into appropriate position. Once the guidewire was in appropriate position and this position was confirmed by x-ray, length of the guidewire was then measured and we chose a 10.5 mm x 90 mm lag screw.? We reamed to allow for the lag screw to be placed. ?The 90 mm lag screw was then passed into the femoral head through the trochanteric nail. This was passed uneventfully and again position was confirmed in AP and lateral planes. Compression was obtained under fluoroscopic guidance.? The set screw was then placed in position, tightened completely, and subsequently backed off one-quarter turn. The construct was left in position and attention was directed distally. Cannulas were again used to determine appropriate placement for the distal screw. This was placed in position without difficulty. It was measured off of the drill. The appropriate length screw was then obtained and placed in position without difficulty. Once the screw was in position, we confirmed appropriate placement of the components, and we removed the jigging system. Attention was then directed to closure. The hip was copiously irrigated with normal saline with antibiotics. Following this it was dried and closed. Tensor fascia mary was closed proximally with 0 Vicryl in an interrupted fashion. Subcutaneous tissues were closed with 2-0 Monocryl, and the skin was closed with a continuous 3-0 Monocryl subcuticular stitch. This was then covered with Dermabond, Steri-Strips, and OpSite. The patient was removed from the fracture table and returned to recovery in satisfactory condition. The patient will be discharged to the floor for postoperative rehabilitation and pain management. There were no specimens obtained. Related Problem List Diagnoses (1) Closed intertrochanteric fracture:
--- NOTE | 2022-03-07 15:22 | ANE.PACU2 ---
Inpatient post-anesthesia follow up: Airway intact: Yes Vital signs: Temperature 97.1 F Pulse Rate 84 Respiratory Rate 13 Blood Pressure 98/47 Pulse Oximetry 98 Oxygen Delivery Me thod Simple Mask Oxygen Flow Rate 10 Fraction of Inspir ed Oxygen Hydration adequate: Yes Nausea and vomiting: No Pain level: 1 Mental status: Baseline
--- NOTE | 2022-03-07 19:09 | PC.NURSE ---
pt returned from PACU. No transfer orders received. Called PACU and they are unable to assist. Call placed to Dr Perez cell phone re: transfer orders. awaiting call back.
--- NOTE | 2022-03-07 19:56 | PC.NURSE ---
Dr. Davis notified of medications on hold from surgery still and no post-op orders. Day shift attempt to contact Dr. Perez.
[2022-03-07] MEDS: levETIRAcetam 500 mg Tablet PO (21:02)
[2022-03-07] MEDS: oseltamivir phosphate 75 mg Capsule PO (22:53)
[2022-03-08] VITALS (16 sets, daily range): BP systolic 96–117; BP diastolic 56–71; PULSE 60–101; RESP 14–18; TEMP 36.6–36.9; O2SAT 90–98
[2022-03-08 03:11] LABS: Basophils % 0.1 %; Hematocrit 28.2 % (37.0-47.0); Hemoglobin 9.1 g/dL (11.5-15.3); Lymphocytes % 9.9 %; Mean Corpuscular HGB Conc 32.3 g/dL (30.0-36.0); Mean Corpuscular Hemoglobin 29.4 pg (28.0-34.0); Mean Corpuscular Volume 91.3 fl (81-99); Mean Platelet Volume 10.6 fL (7.4-10.4); Monocytes # 0.6 10^3/uL (0.2-0.9); Monocytes % 5.8 %; Neutrophils # 8.53 10^3/uL (1.8-7.7); Neutrophils % 83.7 %; Nucleated Red Blood Cells % 0 %; Platelet Count 164 10^3/cmm (130-400); Red Blood Count 3.09 10^6/uL (4.1-5.3); Red Cell Distribution Width 12.5 % (12.1-15.1); White Blood Count 10.2 10^3/uL (4.0-10.0)
[2022-03-08 03:28] LABS: Alanine Aminotransferase 15 U/L (0-33); Albumin Level 3.3 g/dL (3.5-5.2); Alkaline Phosphatase 57 IU/L (35-105); Blood Urea Nitrogen 22 mg/dL (8-23); Calcium 8.3 mg/dL (8.5-10.5); Carbon Dioxide 22 mmol/L (22-29); Chloride 102 mmol/L (98-107); Globulin 2.5 g/dL (1.3-4.6); Glucose 153 mg/dL (65-115); Magnesium 1.9 mg/dL (1.7-2.3); Osmolality Calculated 280 mOsm/kg (285-295); Phosphorus 2.3 mg/dL (2.5-4.5); Sodium 132 mmol/L (136-145); Total Bilirubin 0.2 mg/dL (0.15-1.2); Total Protein 5.8 g/dL (6.6-8.7)
[2022-03-08 03:29] LABS: Anion Gap 12.5 (5-19); Aspartate Amino Transferase 21 U/L (0-32); Potassium 4.5 mmol/L (3.5-5.1)
[2022-03-08] MEDS: aspirin 81 mg EC Tablet PO (05:07)
[2022-03-08] MEDS: spironolactone 25 mg Tablet PO (05:07)
[2022-03-08] MEDS: ipratropium-albuterol 3 mL Neb INHALATION ×4 (07:51→20:25)
[2022-03-08] MEDS: oseltamivir phosphate 75 mg Capsule PO ×2 (10:21→20:59)
[2022-03-08] MEDS: pantoprazole DR 40 mg Tablet PO (10:35)
[2022-03-08] MEDS: montelukast sodium 10 mg Tablet PO (10:35)
[2022-03-08] MEDS: levETIRAcetam 500 mg Tablet PO ×2 (10:35→19:01)
--- NOTE | 2022-03-08 11:26 | PM.PN ---
Subjective Subjective: He reports she is doing better today. Breathing easier. Denies headache, nausea vomiting or diarrhea. No chest pain. Waiting to work with therapy. Vitals/I&O/Wt Last Vital Signs Temp 97.9 F 03/08/22 08:00 Pulse 77 03/08/22 08:06 Resp 16 03/08/22 08:06 BP 108/64 03/08/22 08:00 Pulse Ox 98 03/08/22 08:06 03/07/22 03/08/22 03/08/22 22:59 06:59 14:59 Intake Total 800 / 900 Output Total 575 / 575 Balance 225 / 325 Weight last 48 hrs Weight 69.536 kg Weight 63.503 kg Physical Exam Const: COMMON NORMALS: alert GENERAL APPEARANCE: cooperative ORIENTATION/CONSCIOUSNESS: Yes awake HENMT: COMMON NORMALS: normocephalic, EAC's normal, Normal external nose present and moist oral mucous membranes HEAD & SCALP: normocephalic NOSE: Normal external nose present EXTERNAL AUDITORY CANAL: EAC's normal Neck/C-Spine: COMMON NORMALS: no meningeal signs Chest: CHEST: Yes Symmetrical chest wall rise Resp: COMMON NORMALS: clear to auscultation bilaterally AUSCULTATION: clear to auscultation bilaterally and wheezes (minimal L lower) Cardio: COMMON NORMALS: regular rate, regular rhythm and No murmurs present (Cardio) RATE: regular rate RHYTHM: regular rhythm GI: COMMON NORMALS: Normal to inspection, nondistended, normoactive bowel sounds present, Soft to palpation and non-tender PALPATION: Yes Soft to palpation Extremity: COMMON NORMALS: no pedal edema OTHER: Pain on any repositioning in R hip Neuro: COMMON NORMALS: moves all extremities SENSORIUM/ORIENTATION: Yes alert MENINGEAL SIGNS: Yes no meningeal signs Psych: COMMON NORMALS: mental status grossly normal Skin: COMMON NORMALS: no wounds RASHES: no rashes Urinary Catheter Management: Varghese: Cath Placed During This Visit: yes Reason for Continuing Indwelling Catheter: Other Urinary Catheter Date of Insertion: 03/07/22 Urinary Catheter Time of Insertion: 02:41 Data : 03/08/22 02:51 03/08/22 02:51 A&P Assessment and plan (1) Closed intertrochanteric fracture: S/p ORIF PT assessment. Pain control. Lovenox. Will DC Varghese. Hemoglobin with some decreased down to 9.1. Reassess. Status: Acute Qualifiers: Encounter type: initial encounter Fracture alignment: displaced Laterality: right Qualified Code(s): S72.141A - Displaced intertrochanteric fracture of right femur, initial encounter for closed fracture (2) Asthma exacerbation: Improving. Wheezing resolved. Feeling better in terms of breathing. Influenza a and B. Continue breathing treatments. Continue empiric doxycycline for now. Cut down steroid. Incentive spirometer. Status: Acute (3) Influenza: Influenza A and B, viral pneumonia. Tamiflu. Isolation. Status: Acute (4) Acute hip pain: Status: Acute Plan History of ICD placement, for CHF History of CHF: Avoid fluid overload History of fall: recurrent falls - Attestations Medical Necessity Statement*: Continue admission following hip fracture and repair, reassess hemoglobin, disposition planning. Coding Level of Care Code Acute Construction Safety Manager for [facility] Fwd Exam Comprehensive Diagnoses Acute hip pain M25.559 Closed intertrochanteric fracture S72.141A Encounter type: initial encounter Fracture alignment: displaced Laterality: right Asthma exacerbation J45.901 Influenza J11.1
[2022-03-08] MEDS: TRAMadol 50 mg Tablet PO ×2 (11:53→21:00)
--- NOTE | 2022-03-08 18:28 | PM.PN ---
Subjective Subjective: Patient worked with therapy today. She did well. Her breathing issues have improved. She is awaiting discharge planning. Medications: Reviewed: Yes Vitals/I&O/Wt Last Vital Signs Temp 98.1 F 03/08/22 16:00 Pulse 95 03/08/22 16:18 Resp 16 03/08/22 16:18 BP 106/56 03/08/22 16:00 Pulse Ox 97 03/08/22 16:18 03/08/22 03/08/22 03/08/22 06:59 14:59 22:59 Intake Total 0 / 0 Output Total 575 / 575 Balance -575 / -575 Weight last 48 hrs Weight 153 lb 4.8 oz Physical Exam Const: COMMON NORMALS: no acute distress, average body habitus, patient oriented x3 and alert GENERAL APPEARANCE: cooperative and comfortable ORIENTATION/CONSCIOUSNESS: Yes awake HENMT: COMMON NORMALS: normocephalic and atraumatic HEAD & SCALP: normocephalic and atraumatic Eye: GENERAL EYE: appearance normal, both eyes and all related structures Resp: COMMON NORMALS: normal respiratory effort EFFORT & INSPECTION: Yes able to speak in complete sentences and Yes symmetric chest movement Extremity: RIGHT LOWER EXTREMITY: Yes hip joint (No significant ecchymosis. Wound is clean and dry per nursing.) Right hip: Yes inspection (No significant swelling.), Yes ROM (Not evaluated.) and Yes neurovascular exam (Intact.) Neuro: COMMON NORMALS: patient oriented x3 SENSORIUM/ORIENTATION: Yes alert Psych: COMMON NORMALS: mental status grossly normal APPEARANCE: Yes grossly normal ATTITUDE: Yes calm and Yes engaged ATTENTION/CONCENTRATION: Yes attention grossly intact Skin: COMMON NORMALS: no rashes or lesions noted GENERAL SKIN EXAM: no rashes or lesions noted Urinary Catheter Management: Varghese: Cath Placed During This Visit: yes, but has since been removed by the nurse Reason for Continuing Indwelling Catheter: Decision to DC Catheter Urinary Catheter Date of Insertion: 03/07/22 Urinary Catheter Time of Insertion: 02:41 Date Urinary Catheter Removed: 03/08/22 Time Urinary Catheter Discontinued: 17:11 Data : 03/08/22 02:51 03/08/22 02:51 A&P Assessment and plan (1) Closed intertrochanteric fracture: Patient presented to the emergency room with a displaced shortened right intertrochanteric hip fracture. I was consulted by the emergency department for definitive care. The patient underwent open reduction internal fixation of her right intertrochanteric hip fracture. Today is postop day 1, and she is doing well. Her hospital course is complicated by the fact that she has positive testing for influenza A&B. She presented with significant asthma exacerbation, but this seems to have improved. Orthopedically, she will continue to work with physical therapy and plan for appropriate discharge when she is up and around and deemed to be safe. Status: Acute Qualifiers: Encounter type: initial encounter Fracture alignment: displaced Laterality: right Qualified Code(s): S72.141A - Displaced intertrochanteric fracture of right femur, initial encounter for closed fracture Attestations Medical Necessity Statement*: Ongoing care for therapy and medical management following right intertrochanteric hip fracture. Coding Level of Care Code Acute C[facility]ar S[facility] Diagnoses Closed intertrochanteric fracture S72.141A Encounter type: initial encounter Fracture alignment: displaced Laterality: right
[2022-03-08] MEDS: enoxaparin 40 mg/0.4 mL Syringe SUBCUT (20:59)
[2022-03-09] VITALS (12 sets, daily range): BP systolic 111–144; BP diastolic 55–67; PULSE 75–100; RESP 14–18; TEMP 36.4–37; O2SAT 94–98
[2022-03-09 04:12] LABS: Hematocrit 27.5 % (37.0-47.0); Hemoglobin 8.9 g/dL (11.5-15.3); Lymphocytes # 0.8 10^3/uL (0.8-4.8); Lymphocytes % 11.4 %; Mean Corpuscular HGB Conc 32.4 g/dL (30.0-36.0); Mean Corpuscular Hemoglobin 29.3 pg (28.0-34.0); Mean Corpuscular Volume 90.5 fl (81-99); Mean Platelet Volume 10.7 fL (7.4-10.4); Monocytes # 0.4 10^3/uL (0.2-0.9); Monocytes % 5.2 %; Neutrophils # 5.75 10^3/uL (1.8-7.7); Neutrophils % 82.7 %; Nucleated Red Blood Cells % 0 %; Platelet Count 150 10^3/cmm (130-400); Red Blood Count 3.04 10^6/uL (4.1-5.3); Red Cell Distribution Width 12.8 % (12.1-15.1)
[2022-03-09 05:18] LABS: Alanine Aminotransferase 14 U/L (0-33); Albumin Level 3.5 g/dL (3.5-5.2); Alkaline Phosphatase 63 IU/L (35-105); Anion Gap 12.9 (5-19); Aspartate Amino Transferase 16 U/L (0-32); Blood Urea Nitrogen 21 mg/dL (8-23); Calcium 8.7 mg/dL (8.5-10.5); Carbon Dioxide 25 mmol/L (22-29); Chloride 104 mmol/L (98-107); Globulin 2.5 g/dL (1.3-4.6); Glucose 150 mg/dL (65-115); Magnesium 2.3 mg/dL (1.7-2.3); Osmolality Calculated 292 mOsm/kg (285-295); Phosphorus 1.7 mg/dL (2.5-4.5); Potassium 3.9 mmol/L (3.5-5.1); Sodium 138 mmol/L (136-145); Total Bilirubin 0.2 mg/dL (0.15-1.2)
[2022-03-09] MEDS: aspirin 81 mg EC Tablet PO (05:42)
[2022-03-09] MEDS: spironolactone 25 mg Tablet PO (05:42)
[2022-03-09] MEDS: ipratropium-albuterol 3 mL Neb INHALATION ×4 (07:44→20:53)
[2022-03-09] MEDS: oseltamivir phosphate 75 mg Capsule PO ×2 (08:55→21:03)
[2022-03-09] MEDS: TRAMadol 50 mg Tablet PO (08:55)
[2022-03-09] MEDS: levETIRAcetam 500 mg Tablet PO ×2 (08:55→17:46)
[2022-03-09] MEDS: montelukast sodium 10 mg Tablet PO (08:55)
[2022-03-09] MEDS: pantoprazole DR 40 mg Tablet PO (08:56)
--- NOTE | 2022-03-09 11:46 | PC.SOCIAL ---
IMM Update pg 2 of IMM updated and reviewed w/ patient. Copy provided and Copy placed in chart.
--- NOTE | 2022-03-09 14:53 | PM.PN ---
Subjective Subjective: She is able to work with therapy today. She otherwise reports she is not having trouble breathing. No chest pain. Otherwise feeling okay. Some difficulties and mobilization due to weightbearing some steps at home. unable to help her due to bilateral rotator cuff injuries. Vitals/I&O/Wt Last Vital Signs Temp 97.6 F 03/09/22 11:37 Pulse 98 03/09/22 11:37 Resp 16 03/09/22 11:37 BP 136/66 03/09/22 11:37 Pulse Ox 94 03/09/22 11:37 03/08/22 03/09/22 03/09/22 22:59 06:59 14:59 Intake Total 260 / 360 320 / 320 Balance 260 / -215 320 / 320 Physical Exam Const: COMMON NORMALS: alert GENERAL APPEARANCE: cooperative ORIENTATION/CONSCIOUSNESS: Yes awake HENMT: COMMON NORMALS: normocephalic, EAC's normal, Normal external nose present and moist oral mucous membranes HEAD & SCALP: normocephalic NOSE: Normal external nose present EXTERNAL AUDITORY CANAL: EAC's normal Neck/C-Spine: COMMON NORMALS: no meningeal signs Chest: CHEST: Yes Symmetrical chest wall rise Resp: COMMON NORMALS: clear to auscultation bilaterally AUSCULTATION: clear to auscultation bilaterally and wheezes (minimal L lower) Cardio: COMMON NORMALS: regular rate, regular rhythm and No murmurs present (Cardio) RATE: regular rate RHYTHM: regular rhythm GI: COMMON NORMALS: Normal to inspection, nondistended, normoactive bowel sounds present, Soft to palpation and non-tender PALPATION: Yes Soft to palpation Extremity: COMMON NORMALS: no pedal edema OTHER: Pain on any repositioning in R hip Neuro: COMMON NORMALS: moves all extremities SENSORIUM/ORIENTATION: Yes alert MENINGEAL SIGNS: Yes no meningeal signs Psych: COMMON NORMALS: mental status grossly normal Skin: COMMON NORMALS: no wounds RASHES: no rashes Urinary Catheter Management: Varghese: Cath Placed During This Visit: yes, but has since been removed by the nurse Reason for Continuing Indwelling Catheter: Decision to DC Catheter Urinary Catheter Date of Insertion: 03/07/22 Urinary Catheter Time of Insertion: 02:41 Date Urinary Catheter Removed: 03/08/22 Time Urinary Catheter Discontinued: 17:11 Data : 03/09/22 03:16 03/09/22 03:16 A&P Assessment and plan (1) Closed intertrochanteric fracture: S/p ORIF Reassessment globin, only slight further decrease down to 8.9. Continue mobilization with therapy. Has some steps at home causing difficulty due to only touchdown weightbearing on affected extremity. Pain control. Lovenox. Briana Varghese. Case management working on post discharge planning, arrangements for rehabilitation. Status: Acute Qualifiers: Encounter type: initial encounter Fracture alignment: displaced Laterality: right Qualified Code(s): S72.141A - Displaced intertrochanteric fracture of right femur, initial encounter for closed fracture (2) Asthma exacerbation: Resolving. Wheezing resolved. Doing well on room air. Subjectively feeling better. Continue to wean off steroid, de-escalated to 20 mg prednisone daily for now. Hopefully can stop after 1-2 days. Influenza a and B. Continue breathing treatments. Continue empiric doxycycline for now. Incentive spirometer. Status: Acute (3) Influenza: Influenza A and B, viral pneumonia. Complete Tamiflu. Isolation. Status: Acute (4) Acute hip pain: Status: Acute Plan History of ICD placement, for CHF History of CHF: Avoid fluid overload History of fall: recurrent falls Attestations Medical Necessity Statement*: Continue admission for assessment management failing right hip fracture and repair. Disposition planning and arrangement. Coding Level of Care Code Acute Assistant Professor Of Biochemistry for Carissa Cortés Diagnoses Closed intertrochanteric fracture S72.141A Encounter type: initial encounter Fracture alignment: displaced Laterality: right Asthma exacerbation J45.901 Influenza J11.1 Acute hip pain M25.559
--- NOTE | 2022-03-09 15:26 | P.PN_ITS ---
Subjective Subjective: She is able to work with therapy today. She otherwise reports she is not having trouble breathing. Some difficulties and mobilization due to weightbearing some steps at home. unable to help her due to bilateral rotator cuff injuries. Medications: Reviewed: Yes Vitals/I&O/Wt Last Vital Signs Temp 97.6 F 03/09/22 11:37 Pulse 98 03/09/22 11:37 Resp 16 03/09/22 11:37 BP 136/66 03/09/22 11:37 Pulse Ox 94 03/09/22 11:37 03/09/22 03/09/22 03/09/22 06:59 14:59 22:59 Intake Total 260 / 360 320 / 320 Balance 260 / -215 320 / 320 Physical Exam Const: COMMON NORMALS: no acute distress, average body habitus, patient oriented x3 and alert GENERAL APPEARANCE: cooperative and comfortable ORIENTATION/CONSCIOUSNESS: Yes awake HENMT: COMMON NORMALS: normocephalic and atraumatic HEAD & SCALP: normocephalic and atraumatic Eye: GENERAL EYE: appearance normal, both eyes and all related structures Resp: COMMON NORMALS: normal respiratory effort EFFORT & INSPECTION: Yes able to speak in complete sentences and Yes symmetric chest movement Extremity: RIGHT LOWER EXTREMITY: Yes hip joint (Dressings dry and intact) Right hip: Yes palpation (No tenderness), Yes ROM (Not evaluated) and Yes neurovascular exam (No evidence of DVT) Neuro: COMMON NORMALS: patient oriented x3 SENSORIUM/ORIENTATION: Yes alert Psych: COMMON NORMALS: mental status grossly normal APPEARANCE: Yes grossly normal ATTITUDE: Yes calm and Yes engaged ATTENTION/CONCENTRATION: Yes attention grossly intact Skin: COMMON NORMALS: no rashes or lesions noted GENERAL SKIN EXAM: no rashes or lesions noted Urinary Catheter Management: Varghese: Cath Placed During This Visit: yes, but has since been removed by the nurse Reason for Continuing Indwelling Catheter: Decision to DC Catheter Urinary Catheter Date of Insertion: 03/07/22 Urinary Catheter Time of Insertion: 02:41 Date Urinary Catheter Removed: 03/08/22 Time Urinary Catheter Discontinued: 17:11 Data : 03/09/22 03:16 03/09/22 03:16 A&P Assessment and plan (1) Closed intertrochanteric fracture: Patient presented to the emergency room with a displaced shortened right intertrochanteric hip fracture. I was consulted by the emergency department for definitive care. The patient underwent open reduction internal fixation of her right intertrochanteric hip fracture. Today is postop day 2, and she is doing well. Her hospital course is complicated by the fact that she has positive testing for influenza A&B. She presented with significant asthma exacerbation, but this seems to have improved. Orthopedically, she will continue to work with physical therapy and plan for appropriate discharge when she is up and around and deemed to be safe. Status: Acute Qualifiers: Encounter type: initial encounter Fracture alignment: displaced Laterality: right Qualified Code(s): S72.141A - Displaced intertrochanteric fracture of right femur, initial encounter for closed fracture Attestations Medical Necessity Statement*: Ongoing care following right hip fracture. Coding Level of Care Code Acute Pigment Grinder for Carissa Cortés Diagnoses Closed intertrochanteric fracture S72.141A Encounter type: initial encounter Fracture alignment: displaced Laterality: right
[2022-03-09] MEDS: enoxaparin 40 mg/0.4 mL Syringe SUBCUT (21:02)
[2022-03-10] VITALS (14 sets, daily range): BP systolic 111–172; BP diastolic 60–82; PULSE 74–93; RESP 16–19; TEMP 36.4–36.8; O2SAT 95–99
[2022-03-10 03:23] LABS: Basophils % 0.1 %; Hematocrit 27.7 % (37.0-47.0); Lymphocytes # 2.1 10^3/uL (0.8-4.8); Lymphocytes % 23.8 %; Mean Corpuscular HGB Conc 32.5 g/dL (30.0-36.0); Mean Corpuscular Hemoglobin 28.9 pg (28.0-34.0); Mean Corpuscular Volume 89.1 fl (81-99); Mean Platelet Volume 10.4 fL (7.4-10.4); Monocytes # 0.7 10^3/uL (0.2-0.9); Monocytes % 7.5 %; Neutrophils # 5.76 10^3/uL (1.8-7.7); Nucleated Red Blood Cells % 0 %; Platelet Count 200 10^3/cmm (130-400); Red Blood Count 3.11 10^6/uL (4.1-5.3); Red Cell Distribution Width 12.9 % (12.1-15.1); White Blood Count 8.6 10^3/uL (4.0-10.0)
[2022-03-10 03:48] LABS: Phosphorus 2.2 mg/dL (2.5-4.5)
[2022-03-10] MEDS: aspirin 81 mg EC Tablet PO (06:15)
[2022-03-10] MEDS: spironolactone 25 mg Tablet PO (06:15)
[2022-03-10] MEDS: ipratropium-albuterol 3 mL Neb INHALATION ×4 (08:05→19:39)
[2022-03-10] MEDS: oseltamivir phosphate 75 mg Capsule PO ×2 (09:26→19:52)
[2022-03-10] MEDS: pantoprazole DR 40 mg Tablet PO (09:27)
[2022-03-10] MEDS: predniSONE 20 mg Tablet PO (09:27)
[2022-03-10] MEDS: montelukast sodium 10 mg Tablet PO (09:27)
[2022-03-10] MEDS: levETIRAcetam 500 mg Tablet PO ×2 (09:27→18:11)
--- NOTE | 2022-03-10 14:29 | PM.PN ---
Subjective Subjective: Reports she is breathing comfortably. Denies chest pain or pressure. No nausea vomiting or diarrhea. Vitals/I&O/Wt Last Vital Signs Temp 97.8 F 03/10/22 12:00 Pulse 76 03/10/22 12:00 Resp 16 03/10/22 12:00 BP 172/82 03/10/22 12:00 Pulse Ox 97 03/10/22 11:48 03/09/22 03/10/22 03/10/22 22:59 06:59 14:59 Intake Total 740 / 1060 0 / 1060 240 / 240 Output Total 200 / 200 100 / 100 Balance 740 / 1060 -200 / 860 140 / 140 Physical Exam Const: COMMON NORMALS: alert GENERAL APPEARANCE: cooperative ORIENTATION/CONSCIOUSNESS: Yes awake HENMT: COMMON NORMALS: normocephalic, EAC's normal, Normal external nose present and moist oral mucous membranes HEAD & SCALP: normocephalic NOSE: Normal external nose present EXTERNAL AUDITORY CANAL: EAC's normal Neck/C-Spine: COMMON NORMALS: no meningeal signs Chest: CHEST: Yes Symmetrical chest wall rise Resp: COMMON NORMALS: clear to auscultation bilaterally AUSCULTATION: clear to auscultation bilaterally and wheezes (minimal L lower) Cardio: COMMON NORMALS: regular rate, regular rhythm and No murmurs present (Cardio) RATE: regular rate RHYTHM: regular rhythm GI: COMMON NORMALS: Normal to inspection, nondistended, normoactive bowel sounds present, Soft to palpation and non-tender PALPATION: Yes Soft to palpation Extremity: COMMON NORMALS: no pedal edema Neuro: COMMON NORMALS: moves all extremities SENSORIUM/ORIENTATION: Yes alert MENINGEAL SIGNS: Yes no meningeal signs Psych: COMMON NORMALS: mental status grossly normal Skin: COMMON NORMALS: no wounds RASHES: no rashes Urinary Catheter Management: Varghese: Cath Placed During This Visit: yes, but has since been removed by the nurse Reason for Continuing Indwelling Catheter: Decision to DC Catheter Urinary Catheter Date of Insertion: 03/07/22 Urinary Catheter Time of Insertion: 02:41 Date Urinary Catheter Removed: 03/08/22 Time Urinary Catheter Discontinued: 17:11 Data : 03/10/22 03:00 03/09/22 03:16 A&P Assessment and plan (1) Closed intertrochanteric fracture: S/p ORIF Some acute anemia after fracture and surgery, hemoglobin down to 9. Continue mobilization with therapy. Post discharge planning and arrangements rehabilitation. Pain control. Lovenox. Briana Varghese. Status: Acute Qualifiers: Encounter type: initial encounter Fracture alignment: displaced Laterality: right Qualified Code(s): S72.141A - Displaced intertrochanteric fracture of right femur, initial encounter for closed fracture (2) Asthma exacerbation: Resolving. Wheezing resolved. Doing well on room air. Subjectively feeling better. Decrease prednisone to 10 mg Influenza a and B. Continue breathing treatments. Continue empiric doxycycline for now. Incentive spirometer. Status: Acute (3) Influenza: Influenza A and B, viral pneumonia. Complete Tamiflu. Isolation. Status: Acute (4) Acute hip pain: Status: Acute Plan History of ICD placement, for CHF History of CHF: Avoid fluid overload History of fall: recurrent falls Attestations Medical Necessity Statement*: Continue postoperative care after right hip fracture and repair, with mobility limitation, continue arrangements for rehabilitation. Coding Level of Care Code Acute Loom Fixer Apprentice for Carissa Cortés Diagnoses Closed intertrochanteric fracture S72.141A Encounter type: initial encounter Fracture alignment: displaced Laterality: right Asthma exacerbation J45.901 Influenza J11.1 Acute hip pain M25.559
[2022-03-10] MEDS: polyethylene glycol 3350 Pkt 17 gm PO (14:35)
[2022-03-10] MEDS: enoxaparin 40 mg/0.4 mL Syringe SUBCUT (19:52)
[2022-03-11] VITALS (14 sets, daily range): BP systolic 114–154; BP diastolic 64–84; PULSE 75–108; RESP 14–18; TEMP 36.6–37.6; O2SAT 93–97
[2022-03-11 05:16] LABS: Basophils % 0.1 %; Eosinophils # 0.1 10^3/uL (0.0-0.8); Eosinophils % 1.6 %; Hematocrit 26.3 % (37.0-47.0); Hemoglobin 8.8 g/dL (11.5-15.3); Lymphocytes # 2.5 10^3/uL (0.8-4.8); Lymphocytes % 31.8 %; Mean Corpuscular HGB Conc 33.5 g/dL (30.0-36.0); Mean Corpuscular Hemoglobin 29.6 pg (28.0-34.0); Mean Corpuscular Volume 88.6 fl (81-99); Mean Platelet Volume 10.1 fL (7.4-10.4); Monocytes # 0.6 10^3/uL (0.2-0.9); Monocytes % 7.3 %; Neutrophils # 4.52 10^3/uL (1.8-7.7); Neutrophils % 56.9 %; Nucleated Red Blood Cells % 0.5 %; Platelet Count 209 10^3/cmm (130-400); Red Blood Count 2.97 10^6/uL (4.1-5.3); Red Cell Distribution Width 12.9 % (12.1-15.1)
[2022-03-11 05:35] LABS: Phosphorus 2.3 mg/dL (2.5-4.5)
[2022-03-11] MEDS: spironolactone 25 mg Tablet PO (06:20)
[2022-03-11] MEDS: aspirin 81 mg EC Tablet PO (06:21)
[2022-03-11] MEDS: ipratropium-albuterol 3 mL Neb INHALATION ×4 (08:45→20:05)
[2022-03-11] MEDS: doxycycline 100 mg Tablet PO ×2 (10:31→17:57)
[2022-03-11] MEDS: polyethylene glycol 3350 Pkt 17 gm PO (10:31)
[2022-03-11] MEDS: oseltamivir phosphate 75 mg Capsule PO ×2 (10:31→21:05)
[2022-03-11] MEDS: predniSONE 10 mg Tablet PO (10:32)
[2022-03-11] MEDS: pantoprazole DR 40 mg Tablet PO (10:32)
[2022-03-11] MEDS: levETIRAcetam 500 mg Tablet PO ×2 (10:32→17:57)
[2022-03-11] MEDS: montelukast sodium 10 mg Tablet PO (10:32)
--- NOTE | 2022-03-11 11:14 | PC.SOCIAL ---
IMM Update pg 2 of IMM updated and reviewed w/ patient. Copy provided and Copy in chart updated.
[2022-03-11] MEDS: TRAMadol 50 mg Tablet PO (12:43)
--- NOTE | 2022-03-11 12:59 | P.PN_ITS ---
Subjective Subjective: She is overall doing better. Feels her breathing has been much better. No wheezing. Not short of breath. No nausea vomiting. Denies other complaints. Vitals/I&O/Wt Last Vital Signs Temp 99.7 F H 03/11/22 11:47 Pulse 108 H 03/11/22 11:47 Resp 18 03/11/22 11:47 BP 123/76 03/11/22 11:47 Pulse Ox 95 03/11/22 11:47 03/10/22 03/11/22 03/11/22 22:59 06:59 14:59 Intake Total 350 / 590 75 / 665 120 / 120 Output Total 125 / 225 Balance 225 / 365 75 / 440 120 / 120 Physical Exam Const: COMMON NORMALS: alert GENERAL APPEARANCE: cooperative ORIENTATION/CONSCIOUSNESS: Yes awake HENMT: COMMON NORMALS: normocephalic, EAC's normal, Normal external nose present and moist oral mucous membranes HEAD & SCALP: normocephalic NOSE: Normal external nose present EXTERNAL AUDITORY CANAL: EAC's normal Neck/C-Spine: COMMON NORMALS: no meningeal signs Chest: CHEST: Yes Symmetrical chest wall rise Resp: COMMON NORMALS: clear to auscultation bilaterally AUSCULTATION: clear to auscultation bilaterally and no wheezes Cardio: COMMON NORMALS: regular rate, regular rhythm and No murmurs present (Cardio) RATE: regular rate RHYTHM: regular rhythm GI: COMMON NORMALS: Normal to inspection, nondistended, normoactive bowel sounds present, Soft to palpation and non-tender PALPATION: Yes Soft to palpation Extremity: COMMON NORMALS: no pedal edema Neuro: COMMON NORMALS: moves all extremities SENSORIUM/ORIENTATION: Yes alert MENINGEAL SIGNS: Yes no meningeal signs Psych: COMMON NORMALS: mental status grossly normal Skin: COMMON NORMALS: no wounds RASHES: no rashes Urinary Catheter Management: Varghese: Cath Placed During This Visit: yes, but has since been removed by the nurse Reason for Continuing Indwelling Catheter: Decision to DC Catheter Urinary Catheter Date of Insertion: 03/07/22 Urinary Catheter Time of Insertion: 02:41 Date Urinary Catheter Removed: 03/08/22 Time Urinary Catheter Discontinued: 17:11 Data : 03/11/22 04:44 03/09/22 03:16 A&P Assessment and plan (1) Closed intertrochanteric fracture: S/p ORIF Some acute anemia after fracture and surgery, hemoglobin down to 9. Continue mobilization with therapy. Post discharge planning and arrangements for rehabilitation. Pain control. Lisa. Briana Varghese. Status: Acute Qualifiers: Encounter type: initial encounter Fracture alignment: displaced Laterality: right Qualified Code(s): S72.141A - Displaced intertrochanteric fracture of right femur, initial encounter for closed fracture (2) Asthma exacerbation: Resolved. Discussed with her we will attempt to stop prednisone. Wheezing resolved. Doing well on room air. Subjectively feeling better. Influenza a and B. Continue breathing treatments. Continue empiric doxycycline for now. Incentive spirometer. Status: Acute (3) Influenza: Influenza A and B, viral pneumonia. Complete Tamiflu. Isolation. Status: Acute (4) Acute hip pain: Status: Acute Plan History of ICD placement, for CHF History of CHF: Avoid fluid overload History of fall: recurrent falls Attestations Medical Necessity Statement*: Continue postoperative care after right hip fracture and repair, with mobility limitation, continue arrangements for rehabilitation. Coding Level of Care Code Acute Small Business Sales Representative [facility] Diagnoses Closed intertrochanteric fracture S72.141A Encounter type: initial encounter Fracture alignment: displaced Laterality: right Asthma exacerbation J45.901 Influenza J11.1 Acute hip pain M25.559
[2022-03-11] MEDS: enoxaparin 40 mg/0.4 mL Syringe SUBCUT (21:00)
[2022-03-12] VITALS (13 sets, daily range): BP systolic 104–122; BP diastolic 66–72; PULSE 75–114; RESP 15–18; TEMP 36.6–37.1; O2SAT 94–98
[2022-03-12 05:15] LABS: Basophils % 0.2 %; Eosinophils # 0.5 10^3/uL (0.0-0.8); Eosinophils % 4.4 %; Hematocrit 29.6 % (37.0-47.0); Hemoglobin 9.7 g/dL (11.5-15.3); Lymphocytes # 3.1 10^3/uL (0.8-4.8); Lymphocytes % 29.9 %; Mean Corpuscular HGB Conc 32.8 g/dL (30.0-36.0); Mean Corpuscular Hemoglobin 29.3 pg (28.0-34.0); Mean Corpuscular Volume 89.4 fl (81-99); Mean Platelet Volume 9.7 fL (7.4-10.4); Monocytes # 0.7 10^3/uL (0.2-0.9); Neutrophils # 5.67 10^3/uL (1.8-7.7); Neutrophils % 53.9 %; Nucleated Red Blood Cells % 0.2 %; Platelet Count 262 10^3/cmm (130-400); Red Blood Count 3.31 10^6/uL (4.1-5.3); White Blood Count 10.5 10^3/uL (4.0-10.0)
[2022-03-12] MEDS: spironolactone 25 mg Tablet PO (05:24)
[2022-03-12] MEDS: aspirin 81 mg EC Tablet PO (05:24)
[2022-03-12] MEDS: ipratropium-albuterol 3 mL Neb INHALATION ×4 (08:07→20:32)
[2022-03-12] MEDS: oseltamivir phosphate 75 mg Capsule PO (08:35)
[2022-03-12] MEDS: doxycycline 100 mg Tablet PO ×2 (08:35→18:07)
[2022-03-12] MEDS: polyethylene glycol 3350 Pkt 17 gm PO (08:35)
[2022-03-12] MEDS: montelukast sodium 10 mg Tablet PO (08:35)
[2022-03-12] MEDS: pantoprazole DR 40 mg Tablet PO (08:35)
[2022-03-12] MEDS: levETIRAcetam 500 mg Tablet PO ×2 (08:35→18:07)
[2022-03-12] MEDS: bisacodyl 10 mg Supp PR (12:56)
[2022-03-12] MEDS: TRAMadol 50 mg Tablet PO (16:36)
--- NOTE | 2022-03-12 18:27 | P.PN_ITS ---
Subjective Subjective: She is doing better in terms of her breathing. No recurrence of wheezing. We will stop steroid. She is working with therapy, continue attempts at mobilization. Arrangements are being made for senior living facility placement for rehabilitation prior to returning home as she had remained so far with 1 person assist, and has been unable to help her at home due to bilateral rotator cuff issues. Constipation, still no bowel movement now reportedly in close to a week. Has taken MiraLAX, drank prune juice. Vitals/I&O/Wt Last Vital Signs Temp 98.2 F 03/12/22 15:43 Pulse 99 03/12/22 16:17 Resp 18 03/12/22 16:17 BP 110/66 03/12/22 15:43 Pulse Ox 95 03/12/22 16:17 03/12/22 03/12/22 03/12/22 06:59 14:59 22:59 Intake Total 360 / 360 120 / 480 Balance 360 / 360 120 / 480 Physical Exam Const: COMMON NORMALS: alert GENERAL APPEARANCE: cooperative ORIENTATION/CONSCIOUSNESS: Yes awake OTHER: In good spirits, about to work with PT. HENMT: COMMON NORMALS: normocephalic, EAC's normal, Normal external nose present and moist oral mucous membranes HEAD & SCALP: normocephalic NOSE: Normal external nose present EXTERNAL AUDITORY CANAL: EAC's normal Neck/C-Spine: COMMON NORMALS: no meningeal signs Chest: CHEST: Yes Symmetrical chest wall rise Resp: COMMON NORMALS: clear to auscultation bilaterally AUSCULTATION: clear to auscultation bilaterally and no wheezes Cardio: COMMON NORMALS: regular rate, regular rhythm and No murmurs present (Cardio) RATE: regular rate RHYTHM: regular rhythm GI: COMMON NORMALS: Normal to inspection, nondistended, normoactive bowel sounds present, Soft to palpation and non-tender PALPATION: Yes Soft to palpation Extremity: COMMON NORMALS: no pedal edema Neuro: COMMON NORMALS: moves all extremities SENSORIUM/ORIENTATION: Yes alert MENINGEAL SIGNS: Yes no meningeal signs Psych: COMMON NORMALS: mental status grossly normal Skin: COMMON NORMALS: no wounds RASHES: no rashes Urinary Catheter Management: Varghese: Cath Placed During This Visit: yes, but has since been removed by the nurse Reason for Continuing Indwelling Catheter: Decision to DC Catheter Urinary Catheter Date of Insertion: 03/07/22 Urinary Catheter Time of Insertion: 02:41 Date Urinary Catheter Removed: 03/08/22 Time Urinary Catheter Discontinued: 17:11 Data : 03/12/22 05:05 03/09/22 03:16 A&P Assessment and plan (1) Closed intertrochanteric fracture: S/p ORIF Some acute anemia after fracture and surgery, hemoglobin down to 9. Continue mobilization with therapy. Post discharge planning and arrangements for rehabilitation. Pain control. Lovenox. DC'd Varghese. Status: Acute Qualifiers: Encounter type: initial encounter Fracture alignment: displaced Laterality: right Qualified Code(s): S72.141A - Displaced intertrochanteric fracture of right femur, initial encounter for closed fracture (2) Obstipation: Still no bowel movement this morning close to eat, take MiraLAX, drink prune juice. Requested Dulcolax suppository. If needed. Give enema. Passing gas. No vomiting. Tolerating oral intake. Continue to optimize bowel regimen. Status: Acute (3) Asthma exacerbation: Resolved. Discussed with her we will attempt to stop prednisone. Wheezing resolved. Doing well on room air. Subjectively feeling better. Influenza a and B. Completed Tamiflu. Continue breathing treatments. Continue empiric doxycycline for now. Incentive spirometer. Status: Acute (4) Influenza: Influenza A and B, viral pneumonia. Stop Tamiflu. Isolation. Status: Acute (5) Acute hip pain: Status: Acute Plan History of ICD placement, for CHF History of CHF: Avoid fluid overload History of fall: recurrent falls Attestations Medical Necessity Statement*: Continue admission for management of obstipation, continued mobilization with therapy, arrangements for rehabilit ation. Coding Level of Care Code Acute Emr Implementation Specialist for Dionisio Milana Diagnoses Closed intertrochanteric fracture S72.141A Encounter type: initial encounter Fracture alignment: displaced Laterality: right Asthma exacerbation J45.901 Influenza J11.1 Acute hip pain M25.559 Obstipation K59.00
[2022-03-12] MEDS: enoxaparin 40 mg/0.4 mL Syringe SUBCUT (19:50)
[2022-03-13] VITALS (13 sets, daily range): BP systolic 103–121; BP diastolic 60–70; PULSE 98–118; RESP 14–18; TEMP 36.4–36.8; O2SAT 94–99
[2022-03-13 05:39] LABS: Basophils % 0.2 %; Eosinophils # 0.6 10^3/uL (0.0-0.8); Eosinophils % 6.2 %; Hematocrit 31.5 % (37.0-47.0); Hemoglobin 10.5 g/dL (11.5-15.3); Lymphocytes # 2.4 10^3/uL (0.8-4.8); Mean Corpuscular HGB Conc 33.3 g/dL (30.0-36.0); Mean Corpuscular Hemoglobin 29.5 pg (28.0-34.0); Mean Corpuscular Volume 88.5 fl (81-99); Mean Platelet Volume 9.8 fL (7.4-10.4); Monocytes # 0.8 10^3/uL (0.2-0.9); Monocytes % 7.8 %; Neutrophils # 5.87 10^3/uL (1.8-7.7); Neutrophils % 58.8 %; Nucleated Red Blood Cells % 0.2 %; Platelet Count 287 10^3/cmm (130-400); Red Blood Count 3.56 10^6/uL (4.1-5.3); Red Cell Distribution Width 13.2 % (12.1-15.1)
[2022-03-13] MEDS: aspirin 81 mg EC Tablet PO (05:44)
[2022-03-13] MEDS: spironolactone 25 mg Tablet PO (05:44)
[2022-03-13] MEDS: ipratropium-albuterol 3 mL Neb INHALATION ×4 (08:26→20:36)
[2022-03-13] MEDS: levETIRAcetam 500 mg Tablet PO ×2 (08:42→17:29)
[2022-03-13] MEDS: polyethylene glycol 3350 Pkt 17 gm PO (08:42)
[2022-03-13] MEDS: pantoprazole DR 40 mg Tablet PO (08:43)
[2022-03-13] MEDS: montelukast sodium 10 mg Tablet PO (08:43)
[2022-03-13] MEDS: doxycycline 100 mg Tablet PO ×2 (08:43→17:29)
--- NOTE | 2022-03-13 12:33 | PC.SOCIAL ---
IMM Update pg 2 of IMM updated and reviewed w/ patient. Copy provided and Copy in chart updated.
[2022-03-13] MEDS: TRAMadol 50 mg Tablet PO (13:45)
--- NOTE | 2022-03-13 14:15 | PM.PN ---
Subjective Subjective: Patient was seen this morning, she tells me that she is doing well overall, no shortness of breath, no wheezing, she continues to have pain and weakness in the location of her hip surgery Vitals/I&O/Wt Last Vital Signs Temp 98.3 F 03/13/22 07:54 Pulse 118 H 03/13/22 12:00 Resp 17 03/13/22 12:00 BP 118/60 03/13/22 12:00 Pulse Ox 98 03/13/22 12:00 03/12/22 03/13/22 03/13/22 22:59 06:59 14:59 Intake Total 120 / 480 240 / 240 Balance 120 / 480 240 / 240 Physical Exam Const: COMMON NORMALS: no acute distress and patient oriented x3 Resp: COMMON NORMALS: normal respiratory effort, No retractions, No use of accessory muscles and clear to auscultation bilaterally AUSCULTATION: clear to auscultation bilaterally Cardio: COMMON NORMALS: regular rate, regular rhythm, S1 normal heart sound present and S2 normal heart sound present RATE: regular rate RHYTHM: regular rhythm HEART SOUNDS: S1 normal heart sound present and S2 normal heart sound present GI: COMMON NORMALS: Normal to inspection, nondistended, normoactive bowel sounds present, Soft to palpation and non-tender PALPATION: Yes Soft to palpation Extremity: COMMON NORMALS: no pedal edema Neuro: COMMON NORMALS: patient oriented x3 Psych: COMMON NORMALS: mental status grossly normal Urinary Catheter Management: Varghese: Cath Placed During This Visit: yes, but has since been removed by the nurse Reason for Continuing Indwelling Catheter: Decision to DC Catheter Urinary Catheter Date of Insertion: 03/07/22 Urinary Catheter Time of Insertion: 02:41 Date Urinary Catheter Removed: 03/08/22 Time Urinary Catheter Discontinued: 17:11 Data : 03/13/22 05:09 03/09/22 03:16 A&P Assessment and plan (1) Closed intertrochanteric fracture: S/p ORIF Some acute anemia after fracture and surgery, hemoglobin down to 10.5 Continue mobilization with therapy. Post discharge planning and arrangements for rehabilitation. Pain control. Lovenox. Status: Acute Qualifiers: Encounter type: initial encounter Fracture alignment: displaced Laterality: right Qualified Code(s): S72.141A - Displaced intertrochanteric fracture of right femur, initial encounter for closed fracture (2) Obstipation: Still no bowel movement this morning close to eat, take MiraLAX, drink prune juice. Requested Dulcolax suppository. If needed. Give enema. Passing gas. No vomiting. Tolerating oral intake. Continue to optimize bowel regimen. Status: Acute (3) Asthma exacerbation: Resolved. Discussed with her we will attempt to stop prednisone. Wheezing resolved. Doing well on room air. Subjectively feeling better. Influenza a and B. Completed Tamiflu. Continue breathing treatments. Continue empiric doxycycline for now. Incentive spirometer. Status: Acute (4) Influenza: Influenza A and B, viral pneumonia. Completed Tamiflu Remove isolation after 7 days Status: Acute (5) Acute hip pain: Status: Acute Plan History of ICD placement, for CHF History of CHF: Avoid fluid overload History of fall: recurrent falls Attestations Medical Necessity Statement*: Patient requires hospitalization for hip fracture, Coding Level of Care Code Acute Keypunch Operator for [facility] Diagnoses Closed intertrochanteric fracture S72.141A Encounter type: initial encounter Fracture alignment: displaced Laterality: right Obstipation K59.00 Asthma exacerbation J45.901 Influenza J11.1 Acute hip pain M25.559
--- NOTE | 2022-03-13 16:46 | PC.NURSE ---
Patient resting in room, OOBTC some throughout day, AAOx4, VSS, no new events or needs throughout shift. Room clean and clutter free with call light in reach. Frequently turns self.
[2022-03-13 17:55] LABS: SARS Covid-2 Antigen Negative (Negative)
[2022-03-13] MEDS: enoxaparin 40 mg/0.4 mL Syringe SUBCUT (20:04)
[2022-03-14 01:39] VITALS: PULSE 100; RESP 18; O2SAT 97
[2022-03-14 03:40] LABS: Basophils % 0.1 %; Eosinophils # 0.5 10^3/uL (0.0-0.8); Eosinophils % 6.2 %; Hematocrit 29.4 % (37.0-47.0); Hemoglobin 9.5 g/dL (11.5-15.3); Lymphocytes # 2.2 10^3/uL (0.8-4.8); Lymphocytes % 25.5 %; Mean Corpuscular HGB Conc 32.3 g/dL (30.0-36.0); Mean Corpuscular Volume 89.6 fl (81-99); Mean Platelet Volume 9.9 fL (7.4-10.4); Monocytes # 0.8 10^3/uL (0.2-0.9); Monocytes % 9.3 %; Neutrophils # 4.89 10^3/uL (1.8-7.7); Nucleated Red Blood Cells % 0.2 %; Platelet Count 278 10^3/cmm (130-400); Red Blood Count 3.28 10^6/uL (4.1-5.3); Red Cell Distribution Width 13.4 % (12.1-15.1); White Blood Count 8.7 10^3/uL (4.0-10.0)
[2022-03-14 03:59] LABS: Alanine Aminotransferase 34 U/L (0-33); Albumin Level 3.4 g/dL (3.5-5.2); Alkaline Phosphatase 51 IU/L (35-105); Aspartate Amino Transferase 15 U/L (0-32); Blood Urea Nitrogen 24 mg/dL (8-23); Calcium 8.8 mg/dL (8.5-10.5); Carbon Dioxide 25 mmol/L (22-29); Chloride 102 mmol/L (98-107); Globulin 2.4 g/dL (1.3-4.6); Glucose 129 mg/dL (65-115); Osmolality Calculated 290 mOsm/kg (285-295); Phosphorus 3.7 mg/dL (2.5-4.5); Sodium 137 mmol/L (136-145); Total Bilirubin 0.4 mg/dL (0.15-1.2); Total Protein 5.8 g/dL (6.6-8.7)
[2022-03-14 04:27] VITALS: BP 126/73; PULSE 98; RESP 16; TEMP 36.7; O2SAT 98
[2022-03-14] MEDS: spironolactone 25 mg Tablet PO (05:27)
[2022-03-14] MEDS: aspirin 81 mg EC Tablet PO (05:27)
[2022-03-14 07:39] VITALS: BP 135/81; PULSE 109; RESP 20; TEMP 37; O2SAT 100
[2022-03-14] MEDS: montelukast sodium 10 mg Tablet PO (08:24)
[2022-03-14] MEDS: doxycycline 100 mg Tablet PO (08:24)
[2022-03-14] MEDS: levETIRAcetam 500 mg Tablet PO (08:24)
[2022-03-14] MEDS: polyethylene glycol 3350 Pkt 17 gm PO (08:24)
[2022-03-14] MEDS: pantoprazole DR 40 mg Tablet PO (08:24)
[2022-03-14] MEDS: ipratropium-albuterol 3 mL Neb INHALATION (08:43)
[2022-03-14 08:44] VITALS: PULSE 88; RESP 18; O2SAT 97
--- NOTE | 2022-03-14 10:56 | PM.DCS ---
Discharge Providers Date of Admission: 03/06/22 15:39 Date of Discharge: March 14, 2022 Attending Provider at Admission: Arya Lagunas MD Attending Provider at Discharge: Arya Lagunas MD Diagnoses at Discharge Discharge Diagnosis (1) Closed intertrochanteric fracture: Status: Acute Qualifiers: Encounter type: initial encounter Fracture alignment: displaced Laterality: right Qualified Code(s): S72.141A - Displaced intertrochanteric fracture of right femur, initial encounter for closed fracture (2) Obstipation: Status: Acute (3) Asthma exacerbation: Status: Acute (4) Influenza: Status: Acute (5) Acute hip pain: Status: Acute Reason for Visit Reason for Visit: Fall, R hip pain Hospital Course Hospital Course Elsie Jacobo is a 71 year old female with a past medical history of asthma, history of ICD and defibrillator placement for CHF, CHF, type unknown, who presents to [facility] for a fall.? Patient presented to [facility] for closed intertrochanteric fracture right, status post open reduction internal fixation. 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 Discharged on albuterol, Advair with close follow-up with pulmonary as outpatient Patient also had influenza a and B during hospitalization, received Tamiflu, inhaler therapy, clinically improved, off isolation Physical Exam Const: COMMON NORMALS: no acute distress and patient oriented x3 Resp: COMMON NORMALS: normal respiratory effort, No retractions, No use of accessory muscles and clear to auscultation bilaterally AUSCULTATION: clear to auscultation bilaterally Cardio: COMMON NORMALS: regular rate, regular rhythm, S1 normal heart sound present and S2 normal heart sound present RATE: regular rate RHYTHM: regular rhythm HEART SOUNDS: S1 normal heart sound present and S2 normal heart sound present GI: COMMON NORMALS: Normal to inspection, nondistended, normoactive bowel sounds present, Soft to palpation and non-tender PALPATION: Yes Soft to palpation Extremity: COMMON NORMALS: no pedal edema Neuro: COMMON NORMALS: patient oriented x3 Psych: COMMON NORMALS: mental status grossly normal Urinary Catheter Management: [place]: Cath Placed During This Visit: yes, but has since been removed by the nurse Reason for Continuing Indwelling Catheter: Decision to DC Catheter Urinary Catheter Date of Insertion: 03/07/22 Urinary Catheter Time of Insertion: 02:41 Date Urinary Catheter Removed: 03/08/22 Time Urinary Catheter Discontinued: 17:11 Discharge Data Studies Completed and Pending Completed Studies During Hospitalization Category Date Time Status XR chest 1V portable [id number] Urgent Exams 03/06/22 15:21 Completed XR hip RT 2-3V wo/w pel* [id number] Routine Exams 03/07/22 Completed XR hip RT 2-3V wo/w pel* [id number] Urgent Exams 03/06/22 14:57 Completed Pending at discharge Category Date Time Status Complete Blood Count w/Auto AM LABS Lab 03/15/22 04:00 Ordered Comprehensive Metabolic Panel AM LABS Lab 03/15/22 04:00 Ordered Comprehensive Metabolic Panel AM LABS Lab 03/16/22 04:00 Ordered Magnesium AM LABS Lab 03/15/22 04:00 Ordered Magnesium AM LABS Lab 03/16/22 04:00 Ordered Phosphorus AM LABS Lab 03/15/22 04:00 Ordered Phosphorus AM LABS Lab 03/16/22 04:00 Ordered Radiology Impressions Hip/Pelvis X-Ray 03/07/22 00:00 IMPRESSION: 1. Satisfactory ORIF involving an intertrochanteric fracture of the right hip. Laboratory Results WBC 8.7 10^3/uL (4.0-10.0) 03/14/22 02:48 RBC 3.28 10^6/uL (4.1-5.3) L 03/14/22 02:48 Hgb 9.5 g/dL (11.5-15.3) L 03/14/22 02:48 Hct 29.4 % (37.0-47.0) L 03/14/22 02:48 MCV 89.6 fl (81-99) 03/14/22 02:48 MCH 29.0 pg (28.0-34.0) 03/14/22 02:48 MCHC 32.3 g/dL (30.0-36.0) 03/14/22 02:48 RDW 13.4 % (12.1-15.1) 03/14/22 02:48 Plt Count 278 10^3/cmm (130-400) 03/14/22 02:48 MPV 9.9 fL (7.4-10.4) 03/14/22 02:48 Neut % (Auto) 56.0 % 03/14/22 02:48 Lymph % (Auto) 25.5 % 03/14/22 02:48 Gilliam % (Auto) 9.3 % 03/14/22 02:48 Eos % (Auto) 6.2 % 03/14/22 02:48 Baso % (Auto) 0.1 % 03/14/22 02:48 Neut # (Auto) 4.89 10^3/uL (1.8-7.7) 03/14/22 02:48 Lymph # (Auto) 2.2 10^3/uL (0.8-4.8) 03/14/22 02:48 Gilliam # (Auto) 0.8 10^3/uL (0.2-0.9) 03/14/22 02:48 Eos # (Auto) 0.5 10^3/uL (0.0-0.8) 03/14/22 02:48 Baso # (Auto) 0.0 10^3/uL (0.0-0.1) 03/14/22 02:48 Nucleated RBC % (auto) 0.2 % 03/14/22 02:48 Nucleated RBCs # 0.0 /100WBC 03/14/22 02:48 PT 13.50 SECONDS (12.1-14.9) 03/06/22 15:29 INR 1.00 (0.8-1.2) 03/06/22 15:29 APTT 26.6 SECONDS (23.9-36.7) 03/06/22 15:29 Sodium 137 mmol/L (136-145) 03/14/22 02:48 Potassium 4.0 mmol/L (3.5-5.1) 03/14/22 02:48 Chloride 102 mmol/L (98-107) 03/14/22 02:48 Carbon Dioxide 25 mmol/L (22-29) 03/14/22 02:48 Anion Gap 14.0 (5-19) 03/14/22 02:48 BUN 24 mg/dL (8-23) H 03/14/22 02:48 Creatinine 0.6 mg/dL (0.5-0.9) 03/14/22 02:48 GFR Calculation Not Reportable 03/14/22 02:48 Glucose 129 mg/dL (65-115) H 03/14/22 02:48 Estimat Average Glucose 120 03/07/22 01:43 Hemoglobin A1c 5.8 % (4.0-6.0) 03/07/22 01:43 Calculated Osmolality 290 mOsm/kg (285-295) 03/14/22 02:48 Lactic Acid 0.9 mmol/L (0.5-2.2) 03/07/22 01:43 Calcium 8.8 mg/dL (8.5-10.5) 03/14/22 02:48 Phosphorus 3.7 mg/dL (2.5-4.5) 03/14/22 02:48 Magnesium 2.0 mg/dL (1.7-2.3) 03/14/22 02:48 Total Bilirubin 0.4 mg/dL (0.15-1.2) 03/14/22 02:48 AST 15 U/L (0-32) 03/14/22 02:48 ALT 34 U/L (0-33) H 03/14/22 02:48 Alkaline Phosphatase 51 IU/L (35-105) 03/14/22 02:48 Troponin T Baseline 13 ng/L (0-10) H 03/06/22 15:29 Troponin T 120 Minute 12.05 ng/L (0-10) H 03/06/22 17:45 Delta Troponin T -0.95 ABS# (0-10) L 03/06/22 17:45 Troponin T Hi Sens 6Hr 11.86 ng/L (0-10) H 03/06/22 21:49 Troponin T Hi Sens 6Hr Delta -1.14 ng/L (0-12) L 03/06/22 21:49 C-Reactive Protein 5.0 mg/L (0.0-4.9) H 03/06/22 15:29 NT-Pro-B Natriuret Pep 447 pg/mL (0-125) H 03/07/22 01:43 Total Protein 5.8 g/dL (6.6-8.7) L 03/14/22 02:48 Albumin 3.4 g/dL (3.5-5.2) L 03/14/22 02:48 Globulin 2.4 g/dL (1.3-4.6) 03/14/22 02:48 Triglycerides 117 mg/dL (0-150) 03/07/22 01:43 Cholesterol 206 mg/dL (0-200) H 03/07/22 01:43 LDL Cholesterol, Calc 141 mg/dL (50-129) H 03/07/22 01:43 HDL Cholesterol 42 mg/dL (60-100) L 03/07/22 01:43 LDL/HDL Ratio 3.36 RATIO (0.00-3.22) H 03/07/22 01:43 Cholesterol/HDL Ratio 4.90 mg/dL (0.0-4.40) H 03/07/22 01:43 Procalcitonin 0.05 ng/mL (0-0.5) 03/07/22 01:43 TSH 0.70 uIU/mL (0.27-4.20) 03/07/22 01:43 Urine Color Yellow (Yellow) 03/07/22 02:30 Urine Appearance Clear (CLEAR) 03/07/22 02:30 Urine pH 6 (5-7) 03/07/22 02:30 Ur Specific [place] 1.015 (1.005-1.030) 03/07/22 02:30 Urine Protein Neg (Negative) 03/07/22 02:30 Urine Glucose (UA) Norm (Normal) 03/07/22 02:30 Urine Ketones Negative (Negative) 03/07/22 02:30 Urine Blood Neg (Negative) 03/07/22 02:30 Urine Nitrate Negative (Negative) 03/07/22 02:30 Urine Bilirubin Neg (Negative) 03/07/22 02:30 Urine Urobilinogen Norm mg/dL (Negative) 03/07/22 02:30 Ur Leukocyte Esterase Negative (Negative) 03/07/22 02:30 Coronavirus 229E (PCR) Not detected (NOT DETECT) 03/06/22 23:15 Influenza Type A Ag Positive (Negative) H 03/06/22 23:15 Influenza Type B Ag Positive (Negative) H 03/06/22 23:15 SARS-CoV-2 (PCR) Not detected (NOT DETECT) 03/06/22 23:15 SARS-CoV-2 Ag (Rapid) Negative (Negative) 03/13/22 16:42 Vitals Last Vital Signs Temp 98.6 F 03/14/22 07:39 Pulse 88 03/14/22 08:44 Resp 18 03/14/22 08:44 BP 135/81 03/14/22 07:39 Pulse Ox 97 03/14/22 08:44 Discharge Plan Discharge Patient Disposition: er [facility] Condition: Stable Prescriptions: New polyethylene glycol 3350 17 gram Powder In Packet 17 g PO DAILY PRN (Reason: constipation) 30 Days Qty: 30 0RF Lovenox 40 mg/0.4 mL syringe 40 mg SUBCUT DAILY 14 Days Qty: 4 0RF Ultram 50 mg tablet 50 mg PO Q6H PRN (Reason: pain) 7 Days Qty: 28 0RF Advair Diskus 250-50 mcg/dose blister with device 1 inh inhalation BID Qty: 60 0RF albuterol sulfate 90 mcg/actuation HFA aerosol inhaler 1 inh inhalation Q4H PRN (Reason: shortness of breath or wheezing) Qty: 8.5 0RF Continued multivitamin Tablet 1 tab PO DAILY 0RF ipratropium-albuterol 0.5 mg-3 mg(2.5 mg base)/3 mL solution for nebulization 3 ml INHALATION Q6H PRN (Reason: Shortness Of Breath) 0RF levetiracetam 500 mg tablet 500 mg PO BID 0RF aspirin 81 mg Tablet,Delayed Release (Dr/Ec) 81 mg PO QAM 0RF spironolactone 25 mg tablet 25 mg PO QAM 0RF ropinirole 0.25 mg tablet 0.25 - 0.5 mg PO BEDTIME 0RF pantoprazole 40 mg tablet,delayed release (DR/EC) 40 mg PO DAILY 0RF montelukast 10 mg tablet 10 mg PO DAILY 0RF albuterol sulfate 90 mcg/actuation HFA aerosol inhaler 1 puff INHALATION Q4H PRN (Reason: Shortness Of Breath) 0RF Allergy Eye (ketotifen) 0.025 % (0.035 %) Drops 1 drp OPHTHALMIC (EYE) Q8H PRN (Reason: Allergy Symptoms) 0RF Rx Instructions: do not exceed 2 doses in a 24 hour period Held Enbrel 50 mg/mL (1 mL) syringe 50 mg SUBCUT Q7D 0RF Hold Instructions: Resume on 04/17/22. resume once you see rheumatology Rx Instructions: on sat Discharge Orders: Discharge Order (Routine); Ordered 03/09/22 Ordered By: Lorna Perez Referrals: [facility] [Other] Lorna Perez MD [Physician] - 03/27/22 11:00 am Екатерина Heath MD [Physician] - 2 weeks Rin Nina MD [Physician] - 03/23/22 10:40 am Discharge Diet: Cardiac Discharge Activity: Limit activity as instructed and As per PT/OT instructions Patient Instructions: Tramadol (By mouth), Enoxaparin (By injection), Oseltamivir (By mouth), Influenza (GEN), ORIF of Hip Fracture (GEN), Opioid Safety Activity Restrictions/Additional Instructions: Limit weight bearing to touchdown until reevaluated at my office. Range of motion, ambulation, and strengthening to be worked on with PT. Dressings may stay in place until she is seen in the office unless they come off or there is concern. -Please hold Enbrel until you see primary care -Please use tramadol sparingly for pain -Subcu Lovenox 40 mg once daily for DVT prophylaxis for 14 days -Advair, albuterol for shortness of breath -Please follow-up with pulmonary Discharge Attestations Time Spent in Discharge Care*: less than 30 min Quality Metrics Clinical Quality Measures [ No reported AMI, CVA or VTE this stay] Coding Level of Care Code Acute [facility] FW DC note Diagnoses Closed intertrochanteric fracture S72.141A Encounter type: initial encounter Fracture alignment: displaced Laterality: right Obstipation K59.00 Asthma exacerbation J45.901 Influenza J11.1 Acute hip pain M25.559
[2022-03-14] MEDS: TRAMadol 50 mg Tablet PO (11:42)
[2022-03-14 12:24] VITALS: PULSE 88; RESP 18; O2SAT 97
== END 2022-03-14 12:15 | disposition skilled nursing facility (03) | DRG 480 ==
LOC: ER 17:48 → MEDSURG 18:48
PROVIDERS: Internal Medicine; Specialist; Admitting Provider Family Medicine; Emergency Provider Emergency Medicine; Visit Provider Family Medicine
PROC: 0QS606Z Reposition Right Upper Femur with Intramedullary Internal Fixation Device, Open Approach (ICD-10-PCS; CPT 27245; principal; 2022-03-07 12:20)
DX: S72.141A Displaced intertrochanteric fracture of right femur, initial encounter for closed fracture (principal); J10.00 Influenza due to other identified influenza virus with unspecified type of pneumonia; J45.901 Unspecified asthma with (acute) exacerbation; W18.30XA Fall on same level, unspecified, initial encounter; Z95.810 Presence of automatic (implantable) cardiac defibrillator; I50.9 Heart failure, unspecified; D64.9 Anemia, unspecified; K59.00 Constipation, unspecified; Z79.82 Long term (current) use of aspirin; Z79.51 Long term (current) use of inhaled steroids
CPT/HCPCS: 36415; 51702; 71045; 73502; 76000; 80048; 80053; 80061; 81003; 83036; 83605; 83735; 83880; 84100; 84145; 84443; 84484; 85025; 85610; 85730; 86140; 87426; 87635; 87804; 93005; 94640; 96372; 96374; 96375; 97110; 97116; 97161; 97165; 97530; 97535; 99285; C1713; J1170; J1650; J2270; J2704; J2920; J2930; J3370; J3490; J7030; J7050; J7512

== ENCOUNTER → 2022-03-27 11:06 | Outpatient (BNVA) | payer OTHER, MEDICARE, SELFPAY | PROVIDERS: Visit Provider Nurse Practitioner Family | DX: Z87.891 Personal history of nicotine dependence (principal); S72.143A Displaced intertrochanteric fracture of unspecified femur, initial encounter for closed fracture; X58.XXXA Exposure to other specified factors, initial encounter | CPT/HCPCS: 73502; 99024 ==

== ENCOUNTER → 2022-04-10 13:33 | Outpatient (BNVA) | payer MEDICARE, OTHER, SELFPAY | PROVIDERS: PCP Internal Medicine; Visit Provider Internal Medicine Critical Care Medicine | DX: J45.909 Unspecified asthma, uncomplicated (principal); Z87.891 Personal history of nicotine dependence | CPT/HCPCS: 99203 ==

== ENCOUNTER → 2022-04-27 13:10 | Outpatient (BNVA) | payer MEDICARE, OTHER, SELFPAY | PROVIDERS: PCP Internal Medicine; Visit Provider Nurse Practitioner Family | DX: S72.141D Displaced intertrochanteric fracture of right femur, subsequent encounter for closed fracture with routine healing (principal); X58.XXXD Exposure to other specified factors, subsequent encounter; Z98.890 Other specified postprocedural states | CPT/HCPCS: 73502; 99024; 99213 ==

== ENCOUNTER 2022-07-10 06:00 | Outpatient (RCR) | payer MEDICARE, OTHER, SELFPAY | END 2022-07-17 23:59 | disposition home or self-care (01) | LOC: GPT 06:00 | PROVIDERS: PCP Internal Medicine; Visit Provider Nurse Practitioner Family | DX: M25.551 Pain in right hip (principal); R26.2 Difficulty in walking, not elsewhere classified; R53.1 Weakness; R26.81 Unsteadiness on feet | CPT/HCPCS: 97110; 97162 ==

== ENCOUNTER 2022-07-18 06:00 | Outpatient (RCR) | payer MEDICARE, OTHER, SELFPAY | END 2022-08-16 23:59 | disposition home or self-care (01) | LOC: GPT 06:00 | PROVIDERS: PCP Internal Medicine; Visit Provider Nurse Practitioner Family | DX: Z47.89 Encounter for other orthopedic aftercare (principal) | CPT/HCPCS: 97110; 97116 ==

== ENCOUNTER 2022-08-17 06:00 | Outpatient (RCR) | payer MEDICARE, OTHER, SELFPAY | END 2022-09-16 23:59 | disposition home or self-care (01) | LOC: GPT 06:00 | PROVIDERS: PCP Internal Medicine; Visit Provider Nurse Practitioner Family | DX: Z47.89 Encounter for other orthopedic aftercare (principal) | CPT/HCPCS: 97110; 97112; 97116; 97530 ==

== ENCOUNTER 2022-09-17 06:00 | Outpatient (RCR) | payer MEDICARE, OTHER, SELFPAY | END 2022-10-17 23:59 | disposition home or self-care (01) | LOC: GPT 06:00 | PROVIDERS: PCP Internal Medicine; Visit Provider Nurse Practitioner Family | DX: M25.551 Pain in right hip (principal); R26.2 Difficulty in walking, not elsewhere classified; R53.1 Weakness; R26.81 Unsteadiness on feet | CPT/HCPCS: 97110; 97112; 97116; 97164; 97530 ==